=== PATIENT | female | born 1945 | race Caucasian/White ===

== ENCOUNTER → 2016-06-17 | Outpatient (CLI) | payer MEDICARE, OTHER ==
[2016-06-17 13:31] LABS: CALCIUM LEVEL 9.3 MG/DL (8.8-10.2); CREATININE FOR GFR 1.03 MG/DL (0.55-1.02); GLOMERULAR FILTRATION RATE 56.4 (>39); POTASSIUM SERUM 4.2 MEQ/L (3.5-5.1)
--- NOTE | 2016-06-17 23:14 | ECGEPIP ---
Stationary ECG Study [facility] Test Date: 2016-06-17 Pat Name: ODALYS JOSE Department: Room: - Gender: F Event Coordinator: ALEJANDRO : 1945 Requested By: Jeffrey Zheng @ [facility] Order Number: [id number] Reading MD: Mary Noriega Measurements Intervals [place] Rate: 56 P: 7 NV: 136 QRS: 13 QRSD: 138 T: 19 QT: 392 QTc: 378 Interpretive Statements SINUS BRADYCARDIA RIGHT BUNDLE BRANCH BLOCK NO PRIOR Electronically Signed On 06-17-2016 23:13:45 EST by Mary Noriega
== END ==
LOC: M LAB 12:34
PROVIDERS: ATTEND Orthopaedic Surgery
DX: Z51.81 Encounter for therapeutic drug level monitoring (principal); Z79.01 Long term (current) use of anticoagulants; I10 Essential (primary) hypertension

== ENCOUNTER → 2016-07-08 | Outpatient (CLI) | payer MEDICARE, OTHER ==
[2016-07-08 12:23] LABS: ALBUMIN/GLOBULIN RATIO 1.21 (1.00-1.93); ALKALINE PHOSPHATASE 84 U/L (45-117); ALT/SGPT 18 U/L (12-78); ANION GAP 6 MEQ/L (8-16); AST/SGOT 18 U/L (15-37); BILIRUBIN,TOTAL 0.5 MG/DL (0.2-1.0); BLOOD UREA NITROGEN 20 MG/DL (7-18); CALCIUM LEVEL 9.3 MG/DL (8.8-10.2); CARBON DIOXIDE LEVEL 31 MEQ/L (21-32); CHLORIDE LEVEL 103 MEQ/L (98-107); CHOLESTEROL LEVEL 248 MG/DL (<200); CREATININE FOR GFR 0.97 MG/DL (0.55-1.02); GLOMERULAR FILTRATION RATE > 60.0 (>39); GLUCOSE, FASTING 94 MG/DL (83-110); MAGNESIUM LEVEL 2.2 MG/DL (1.8-2.4); POTASSIUM SERUM 4.2 MEQ/L (3.5-5.1); SODIUM LEVEL 140 MEQ/L (136-145); TOTAL PROTEIN 7.3 GM/DL (6.4-8.2); TRIGLYCERIDES LEVEL 206 MG/DL (<150)
== END ==
LOC: M WUC 10:06
PROVIDERS: ATTEND Internal Medicine
DX: I10 Essential (primary) hypertension (principal); E78.00 Pure hypercholesterolemia, unspecified

== ENCOUNTER → 2016-10-07 | Outpatient (REF) | payer MEDICARE, OTHER | LOC: M SFHCPLAZ 15:41 | PROVIDERS: ATTEND Nurse Practitioner Adult Health | DX: J02.9 Acute pharyngitis, unspecified (principal) ==

== ENCOUNTER → 2016-11-20 | Outpatient (CLI) | payer MEDICARE, OTHER ==
[2016-11-20 19:38] LABS: CALCIUM LEVEL 8.9 MG/DL (8.8-10.2); CREATININE FOR GFR 0.99 MG/DL (0.55-1.02)
== END ==
LOC: M WUC 16:55
PROVIDERS: ATTEND Orthopaedic Surgery
DX: Z79.899 Other long term (current) drug therapy (principal); I10 Essential (primary) hypertension

== ENCOUNTER → 2017-01-08 | Outpatient (CLI) | payer MEDICARE, OTHER ==
[2017-01-08 13:08] LABS: MEAN CORPUSCULAR HEMOGLOBIN 31.4 pg (27.0-33.0); MEAN CORPUSCULAR HGB CONC 33.9 g/dl (32.0-36.5); MEAN CORPUSCULAR VOLUME 92.4 fl (80.0-96.0); RED CELL DISTRIBUTION WIDTH 12.5 % (11.5-14.5); WHITE BLOOD COUNT 3.7 K/mm3 (4.0-10.0)
[2017-01-08 13:54] LABS: ALBUMIN 3.6 GM/DL (3.2-5.2); ALBUMIN/GLOBULIN RATIO 1.06 (1.00-1.93); BILIRUBIN,TOTAL 0.3 MG/DL (0.2-1.0); CALCIUM LEVEL 9.3 MG/DL (8.8-10.2); CREATININE FOR GFR 0.98 MG/DL (0.55-1.02); GLOMERULAR FILTRATION RATE 59.7 (>39); POTASSIUM SERUM 4.3 MEQ/L (3.5-5.1)
== END ==
LOC: M WUC 09:52
PROVIDERS: ATTEND Internal Medicine
DX: J30.9 Allergic rhinitis, unspecified (principal); I10 Essential (primary) hypertension; E03.9 Hypothyroidism, unspecified

== ENCOUNTER → 2017-03-30 | Outpatient (CLI) | payer MEDICARE, OTHER ==
[~2017-03-30] MED LIST: ACET30TAB PO; ATOR1TAB21 PO; AZEL1SPR3; BISO5TAB2 PO; CYCL10TA PO; ESTR10TA; FLUTISP; GABA-282 PO; GABA800T PO; MELO15TA4 PO; OMEP20CA3 PO; SERT-138 PO; SYNT88TA2 PO; TRAM50TA2 PO; [UNRECOGNIZED DRUG - CODE]
--- NOTE | 2017-03-30 12:11 | REP ---
LUMBAR SPINE, FIVE VIEWS: HISTORY: Back pain. There is no fracture. The lumbar intervertebral discs are decreased in height consistent with disc degeneration. Osteophytes are present on L3 and L4. There is narrowing of the right L3-4 through L5-S1 and left L4-5 and L5-S1 facet joints. There are 4 mm of grade 1 spondylolisthesis of L3 on L4. There is partial sacralization of the L5 vertebral body. IMPRESSION: Degenerative change as described above. Signed by José Miguel Bangura MD 03/30/2017 12:52 P
== END ==
LOC: M WUC 11:06
PROVIDERS: ATTEND Family Medicine
DX: M54.42 Lumbago with sciatica, left side (principal); M25.78 Osteophyte, vertebrae; M43.16 Spondylolisthesis, lumbar region
CPT/HCPCS: 72110; G0463

== ENCOUNTER 2017-04-04 14:19 | Emergency (ER) | payer MEDICARE, OTHER ==
[~2017-04-04] VITALS: Ht 157.5 cm; Wt 70.5 kg
[2017-04-04] MEDS ORDERED: FLUTISP (14:37)
[2017-04-04] MEDS ORDERED: SYNT88TA2 PO (14:37)
[2017-04-04] MEDS ORDERED: ATOR1TAB21 PO (14:37)
[2017-04-04] MEDS ORDERED: GABA800T PO (14:37)
[2017-04-04] MEDS ORDERED: AZEL1SPR3 (14:37)
[2017-04-04] MEDS ORDERED: GABA-282 PO (14:37)
[2017-04-04] MEDS ORDERED: ESTR10TA (14:37)
[2017-04-04] MEDS ORDERED: OMEP20CA3 PO (14:37)
[2017-04-04] MEDS ORDERED: ACET30TAB PO (14:37)
[2017-04-04] MEDS ORDERED: TRAM50TA2 PO (14:37)
[2017-04-04] MEDS ORDERED: MELO15TA4 PO (14:40)
[2017-04-04] MEDS ORDERED: [UNRECOGNIZED DRUG - CODE] (14:40)
[2017-04-04] MEDS ORDERED: BISO5TAB2 PO (14:40)
[2017-04-04] MEDS ORDERED: SERT-138 PO (14:40)
[2017-04-04] MEDS ORDERED: CYCL10TA PO (14:41)
[2017-04-04] MEDS ORDERED: PERCOCET 5MG/325MG TAB PO ONE (15:45)
[2017-04-04 17:05] VITALS: BP 126/85
--- NOTE | 2017-04-05 06:02 | REP ---
CT LUMBAR SPINE: CT lumbar spine is performed in the axial plane. Sagittal and coronal reconstruction images are performed. There is no compression fracture. There is normal lumbar lordosis. There is slight anterolisthesis of L3 on L4 due to posterior facet arthropathy with no spondylolisthesis. There is mild diffuse spurring. There is mild disc space narrowing with vacuum at L3-4. There is moderate disc space narrowing with subchondral sclerosis and vacuum at L5-S1. There is diffuse sclerosis and spurring at the posterior facet joints. I do not see significant disc bulging at L1-2 and there is no evidence of spinal stenosis or foraminal narrowing. At L2-3, there is very mild diffuse disc bulging without spinal stenosis or neural foraminal narrowing. At L3-4, there is moderate diffuse disc bulging. There is moderately severe hypertrophic change of the ligamentum flavum posteriorly. These factors in concert cause moderately severe spinal stenosis and mild bilateral foraminal narrowing. At L4-5, there is moderate diffuse disc bulging. There is moderate hypertrophy of the ligamentum flavum. There is moderate spinal stenosis. There appears to be a large far left lateral disc herniation at this level as well. This likely impinges upon the exiting nerve root on the left at the L4-5 foramen. At L5-S1, there is not significant disc bulging or herniation. There is no spinal stenosis or foraminal narrowing. IMPRESSION: Diffuse degenerative changes with no fracture or dislocation. At L3-4, there is moderate diffuse disc bulging and significant hypertrophy of the ligamentum flavum causing moderately severe spinal stenosis and mild bilateral foraminal narrowing. At L4-5, there is moderate diffuse disc bulging and hypertrophy of the ligamentum flavum with a moderate spinal stenosis. There appears to be a far left lateral large disc herniation which appears to impinge upon the exiting nerve root of the L4-5 foramen. This could be confirmed with MRI. Signed by Jacoby Banuelos MD 04/05/2017 09:02 A
== END 2017-04-04 17:08 | disposition home or self-care (01) ==
LOC: M ED 14:19
DX: M51.16 Intervertebral disc disorders with radiculopathy, lumbar region (principal); M48.061 Spinal stenosis, lumbar region without neurogenic claudication; G89.29 Other chronic pain; I10 Essential (primary) hypertension; J32.9 Chronic sinusitis, unspecified; R01.1 Cardiac murmur, unspecified; E03.9 Hypothyroidism, unspecified; F33.9 Major depressive disorder, recurrent, unspecified; Z79.51 Long term (current) use of inhaled steroids; Z79.82 Long term (current) use of aspirin; Z79.890 Hormone replacement therapy; Z79.899 Other long term (current) drug therapy; Z88.1 Allergy status to other antibiotic agents; Z88.2 Allergy status to sulfonamides; Z88.8 Allergy status to other drugs, medicaments and biological substances; Z91.81 History of falling

== ENCOUNTER 2017-04-05 05:47 | Emergency (ER) | payer MEDICARE, OTHER ==
[~2017-04-05] VITALS: Ht 157.5 cm; Wt 70.5 kg
[2017-04-05 05:48] VITALS: BP 198/100
== END 2017-04-05 08:42 | disposition left against medical advice (07) ==
LOC: M ED 05:47
DX: Z53.21 Procedure and treatment not carried out due to patient leaving prior to being seen by health care provider (principal)

== ENCOUNTER → 2017-05-07 | Outpatient (CLI) | payer MEDICARE, OTHER | LOC: M PAIN 11:00 | DX: G89.29 Other chronic pain (principal); M51.16 Intervertebral disc disorders with radiculopathy, lumbar region; M47.816 Spondylosis without myelopathy or radiculopathy, lumbar region; M54.5 Low back pain; K21.9 Gastro-esophageal reflux disease without esophagitis; I10 Essential (primary) hypertension; M19.90 Unspecified osteoarthritis, unspecified site; F32.9 Major depressive disorder, single episode, unspecified; G47.00 Insomnia, unspecified; E03.9 Hypothyroidism, unspecified; E78.5 Hyperlipidemia, unspecified; Z88.1 Allergy status to other antibiotic agents; Z88.2 Allergy status to sulfonamides; Z88.8 Allergy status to other drugs, medicaments and biological substances; Z79.82 Long term (current) use of aspirin; Z79.899 Other long term (current) drug therapy; Z91.81 History of falling | CPT/HCPCS: G0463 ==

== ENCOUNTER → 2017-07-08 | Outpatient (REF) | payer MEDICARE, OTHER ==
[2017-07-08 12:24] LABS: ALBUMIN 3.8 GM/DL (3.2-5.2); ALBUMIN/GLOBULIN RATIO 1.23 (1.00-1.93); ALKALINE PHOSPHATASE 75 U/L (45-117); ALT/SGPT 21 U/L (12-78); ANION GAP 7 MEQ/L (8-16); AST/SGOT 20 U/L (7-37); BILIRUBIN,TOTAL 0.3 MG/DL (0.2-1.0); BLOOD UREA NITROGEN 13 MG/DL (7-18); CALCIUM LEVEL 9.1 MG/DL (8.8-10.2); CARBON DIOXIDE LEVEL 30 MEQ/L (21-32); CHLORIDE LEVEL 103 MEQ/L (98-107); CHOLESTEROL LEVEL 178 MG/DL (<200); CREATININE FOR GFR 0.93 MG/DL (0.55-1.30); GLOMERULAR FILTRATION RATE > 60.0 (>39); GLUCOSE, FASTING 93 MG/DL (70-100); HDL CHOLESTEROL 62 MG/DL (>40); LDL CHOLESTEROL 90.6 MG/DL (<100); MAGNESIUM LEVEL 2.2 MG/DL (1.8-2.4); NON-HDL-C 116 MG/DL; POTASSIUM SERUM 4.6 MEQ/L (3.5-5.1); SODIUM LEVEL 140 MEQ/L (136-145); TOTAL PROTEIN 6.9 GM/DL (6.4-8.2); TRIGLYCERIDES LEVEL 127 MG/DL (<150)
== END ==
LOC: M SFHCPLAZ 08:39
DX: I10 Essential (primary) hypertension (principal); E78.00 Pure hypercholesterolemia, unspecified
CPT/HCPCS: 83735

== ENCOUNTER → 2017-07-09 | Outpatient (CLI) | payer MEDICARE, OTHER | LOC: M PAIN 13:45 | DX: G89.29 Other chronic pain (principal); M54.5 Low back pain; M47.816 Spondylosis without myelopathy or radiculopathy, lumbar region; K21.9 Gastro-esophageal reflux disease without esophagitis; I10 Essential (primary) hypertension; E78.5 Hyperlipidemia, unspecified; F32.9 Major depressive disorder, single episode, unspecified; G47.00 Insomnia, unspecified; E03.9 Hypothyroidism, unspecified; M19.90 Unspecified osteoarthritis, unspecified site; Z79.82 Long term (current) use of aspirin; Z79.899 Other long term (current) drug therapy; Z88.6 Allergy status to analgesic agent; Z88.2 Allergy status to sulfonamides; Z88.8 Allergy status to other drugs, medicaments and biological substances | CPT/HCPCS: G0463 ==

== ENCOUNTER → 2017-07-30 | Outpatient (CLI) | payer MEDICARE, OTHER ==
[2017-07-30 11:14] LABS: HEMATOCRIT 38.1 % (36.0-47.0); HEMOGLOBIN 12.5 g/dl (12.0-16.0); MEAN CORPUSCULAR HEMOGLOBIN 30.7 pg (27.0-33.0); MEAN CORPUSCULAR HGB CONC 32.8 g/dl (32.0-36.5); MEAN CORPUSCULAR VOLUME 93.6 fl (80.0-96.0); PLATELET COUNT, AUTOMATED 212 10^3/uL (150-450); RED BLOOD COUNT 4.07 10^6/uL (4.00-5.40); RED CELL DISTRIBUTION WIDTH 12.2 % (11.5-14.5); WHITE BLOOD COUNT 4.6 10^3/uL (4.0-10.0)
[2017-07-30 11:22] LABS: APPEARANCE, URINE CLEAR (CLEAR); BACTERIA, URINE AUTO NEGATIVE (NEGATIVE); BILIRUBIN, URINE AUTO NEGATIVE (NEGATIVE); BLOOD, URINE BLOOD 1+ (NEGATIVE); COLOR, URINE YELLOW (YELLOW); GLUCOSE, URINE (UA) AUTO NEGATIVE (NEGATIVE); KETONE, URINE AUTO NEGATIVE (NEGATIVE); LEUKOCYTE ESTERASE, URINE AUTO NEGATIVE (NEGATIVE); MUCUS, URINE SMALL (NEGATIVE); NITRITE, URINE AUTO NEGATIVE (NEGATIVE); PROTEIN, URINE AUTO NEGATIVE (NEGATIVE); RBC, URINE AUTO 7 /HPF (0-3); SPECIFIC GRAVITY URINE AUTO 1.009 (1.002-1.035); SQUAMOUS EPITHELIAL CELL UR AU 0 /HPF (0-6); UROBILINOGEN, URINE AUTO 0.2 mg/dL (0.0-2.0); WBC, URINE AUTO 1 /HPF (0-3)
[2017-07-30 11:26] LABS: INR 0.88
[2017-07-30 11:40] LABS: ALBUMIN 3.8 GM/DL (3.2-5.2); ALBUMIN/GLOBULIN RATIO 1.09 (1.00-1.93); ALKALINE PHOSPHATASE 86 U/L (45-117); ALT/SGPT 19 U/L (12-78); ANION GAP 6 MEQ/L (8-16); AST/SGOT 15 U/L (7-37); BILIRUBIN,TOTAL 0.3 MG/DL (0.2-1.0); BLOOD UREA NITROGEN 14 MG/DL (7-18); CALCIUM LEVEL 8.7 MG/DL (8.8-10.2); CARBON DIOXIDE LEVEL 29 MEQ/L (21-32); CHLORIDE LEVEL 105 MEQ/L (98-107); CREATININE FOR GFR 0.91 MG/DL (0.55-1.30); GLOMERULAR FILTRATION RATE > 60.0 (>39); GLUCOSE, FASTING 81 MG/DL (70-100); POTASSIUM SERUM 3.9 MEQ/L (3.5-5.1); SODIUM LEVEL 140 MEQ/L (136-145); TOTAL PROTEIN 7.3 GM/DL (6.4-8.2)
[2017-07-30 11:52] LABS: ERYTHROCYTE SEDIMENTATION RATE 20 mm/hr (0-30)
== END ==
LOC: M ADMPAT 09:24
DX: Z01.818 Encounter for other preprocedural examination (principal); M17.11 Unilateral primary osteoarthritis, right knee; Z79.899 Other long term (current) drug therapy
CPT/HCPCS: 71046

== ENCOUNTER 2017-08-19 09:24 | Inpatient (IN) | payer MEDICARE, OTHER ==
[2017-08-19] MEDS ORDERED: LR 1,000 ML IV (09:45)
[2017-08-19] MEDS ORDERED: LIDOCAINE 1% MDV 20ML VIAL SQ (09:45)
[2017-08-19] MEDS ORDERED: fentaNYL 100 MCG/2 ML INJECTION (J3010) As Ordered ×2 (11:02→11:46)
[2017-08-19] MEDS ORDERED: MIDAZOLAM INJ 2 MG/2 ML VIAL (J2250) As Ordered ×2 (11:02→11:47)
[2017-08-19] MEDS: fentaNYL 100 MCG/2 ML INJECTION (J3010) IV (12:26)
[2017-08-19] MEDS: MIDAZOLAM INJ 2 MG/2 ML VIAL (J2250) IV (12:26)
[2017-08-19] MEDS ORDERED: ePHEDrine SULFATE 25 MG/5 ML(5MG/ML) SYRINGE As Ordered (12:56)
[2017-08-19] MEDS ORDERED: PROPOFOL 200 MG/20 ML VIAL As Ordered ×2 (12:59)
[2017-08-19] MEDS ORDERED: PHENYLephrine HCL 500 MCG/5 ML (100MCG/ML) SYRINGE (J2370) As Ordered (12:59)
[2017-08-19] MEDS: EPINEPHrine INJ 1 MG/ML 1ML AMP As Ordered (13:24)
[2017-08-19] MEDS: BUPIVACAINE LIPOSOME/PF 1.3% 20 ML VIAL (13.3MG/ML)(EXPAREL) As Ordered (13:25)
[2017-08-19] MEDS: ceFAZolin 1GM INJ (J0690 PER 500MG) As Ordered (13:25)
[2017-08-19] MEDS: TRANEXAMIC ACID 100 MG/ML 10ML VIAL As Ordered (13:26)
[2017-08-19] MEDS ORDERED: ONDANSETRON 4MG/2ML VIAL (J2405) As Ordered (14:08)
[2017-08-19] MEDS ORDERED: dexameTHASONE 4 MG/ML 1ML VIAL (J1100) As Ordered (14:08)
[2017-08-19] MEDS ORDERED: MORPHINE 1MG/ML IN 0.9% NACL 100ML IV BAG As Ordered (14:20)
[2017-08-19] MEDS ORDERED: FLEET ENEMA PR (14:45)
[2017-08-19] MEDS ORDERED: diphenhydrAMINE INJ 50MG/ML VIAL (J1200) IV (14:45)
[2017-08-19] MEDS ORDERED: NALOXONE INJ 0.4 MG/1 ML VIAL (J2310) IV (14:45)
[2017-08-19] MEDS ORDERED: NALBUPHINE HCL 10 MG/ML AMP (J2300) IV (14:45)
[2017-08-19] MEDS ORDERED: PERCOCET 5MG/325MG TAB PO (14:45)
[2017-08-19] MEDS ORDERED: EPIDURAL/PCA KEYS XX (14:45)
[2017-08-19] MEDS ORDERED: HYDROmorphone HCL 1 MG/ML SYRINGE (J1170) IV (14:45)
[2017-08-19] MEDS ORDERED: fentaNYL 100 MCG/2 ML INJECTION (J3010) IV (14:45)
[2017-08-19] MEDS ORDERED: ACETAMINOPHEN TAB 650MG DOSE (2X325MG) PO (14:45)
[2017-08-19] MEDS ORDERED: MORPHINE 1MG/ML IN 0.9% NACL 100ML IV BAG IV (14:45)
[2017-08-19] MEDS: LR 1,000 ML IV ×2 (14:45→17:20)
[2017-08-19] MEDS ORDERED: ONDANSETRON 4MG/2ML VIAL (J2405) IV ×3 (14:45)
[2017-08-19] MEDS ORDERED: LIDOCAINE 1% MDV 20ML VIAL (15:06)
[2017-08-19] MEDS ORDERED: ROPIvacaine 0.5% 30 ML INJECTION (J2795 PER 1MG) (15:06)
[2017-08-19] MEDS ORDERED: dexameTHASONE 10 MG/1 ML VIAL PRES.FREE (J1100) (15:06)
[2017-08-19 15:19] LABS: HEMATOCRIT 34.6 % (36.0-47.0); HEMOGLOBIN 11.4 g/dl (12.0-15.5); MEAN CORPUSCULAR HGB CONC 32.9 g/dl (32.0-36.5); PLATELET COUNT, AUTOMATED 161 10^3/uL (150-450); RED BLOOD COUNT 3.68 10^6/uL (4.00-5.40); RED CELL DISTRIBUTION WIDTH 12.4 % (11.5-14.5); WHITE BLOOD COUNT 7.3 10^3/uL (4.0-10.0)
[2017-08-19 15:40] LABS: ANION GAP 4 MEQ/L (8-16); BLOOD UREA NITROGEN 14 MG/DL (7-18); CALCIUM LEVEL 8.7 MG/DL (8.8-10.2); CARBON DIOXIDE LEVEL 28 MEQ/L (21-32); CHLORIDE LEVEL 111 MEQ/L (98-107); CREATININE FOR GFR 0.86 MG/DL (0.55-1.30); GLOMERULAR FILTRATION RATE > 60.0 (>39); GLUCOSE, FASTING 111 MG/DL (70-100); POTASSIUM SERUM 4.3 MEQ/L (3.5-5.1); SODIUM LEVEL 143 MEQ/L (136-145)
[2017-08-19] MEDS: WARFARIN SOD 5 MG TAB PO (17:06)
[2017-08-19] MEDS: GABAPENTIN 400 MG CAP PO (20:13)
[2017-08-19] MEDS: ATORVASTATIN 20 MG TAB PO (20:13)
[2017-08-20] MEDS: LR 1,000 ML IV (04:45)
[2017-08-20] MEDS: LEVOTHYROXINE 88MCG TABLET (0.088 MG) PO (05:45)
[2017-08-20 07:00] LABS: INR 1.18; PROTHROMBIN TIME 15.2 SECONDS (12.4-14.5)
[2017-08-20] MEDS: ONDANSETRON 4 MG TAB (S0181) PO (08:02)
[2017-08-20] MEDS: PERCOCET 5MG/325MG TAB PO ×2 (08:03→12:32)
[2017-08-20] MEDS: MIRALAX *UNIT DOSE* 17GM PACKET PO (09:35)
[2017-08-20] MEDS: OMEPRAZOLE 20 MG CAP PO (09:36)
[2017-08-20] MEDS: GABAPENTIN 300 MG CAP PO ×2 (09:36→12:32)
[2017-08-20] MEDS: SERTRALINE HCL 50 MG TAB PO (09:37)
[2017-08-20] MEDS: SENOKOT S TAB PO ×2 (09:38→19:56)
[2017-08-20] MEDS: BISOPROLOL FUMARATE 5 MG TAB PO (09:42)
[2017-08-20] MEDS: FLUTICASONE PROP 0.05% NASAL SPRAY 16 GM (FLONASE) (09:43)
[2017-08-20] MEDS: AZELASTINE 137MCG NASAL SPY 30 ML (ASTELIN) (09:43)
[2017-08-20] MEDS: MOM 30ML SUSPENSION UDC PO (09:43)
[2017-08-20] MEDS ORDERED: NALOXONE INJ 0.4 MG/1 ML VIAL (J2310) As Ordered (13:35)
[2017-08-20] MEDS: NALOXONE INJ 0.4 MG/1 ML VIAL (J2310) IV (13:44)
[2017-08-20] MEDS: ACETAMINOPHEN 500 MG TAB PO ×2 (17:08→23:03)
[2017-08-20] MEDS: WARFARIN SOD 5 MG TAB PO (17:08)
[2017-08-20] MEDS: traMADol 50 MG TAB PO ×2 (17:08→22:02)
[2017-08-20] MEDS: ATORVASTATIN 20 MG TAB PO (19:56)
[2017-08-20] MEDS: GABAPENTIN 400 MG CAP PO (19:56)
[2017-08-21] MEDS: traMADol 50 MG TAB PO ×4 (03:29→10:31)
[2017-08-21] MEDS: ACETAMINOPHEN 500 MG TAB PO (05:20)
[2017-08-21] MEDS: LEVOTHYROXINE 88MCG TABLET (0.088 MG) PO (05:20)
[2017-08-21] MEDS ORDERED: traMADol 50 MG TAB PO (05:45)
[2017-08-21 06:49] LABS: INR 1.81; PROTHROMBIN TIME 21.6 SECONDS (12.4-14.5)
[2017-08-21 07:04] LABS: HEMATOCRIT 27.7 % (36.0-47.0); MEAN CORPUSCULAR HEMOGLOBIN 31.1 pg (27.0-33.0); MEAN CORPUSCULAR HGB CONC 32.9 g/dl (32.0-36.5); MEAN CORPUSCULAR VOLUME 94.5 fl (80.0-96.0); PLATELET COUNT, AUTOMATED 165 10^3/uL (150-450); RED BLOOD COUNT 2.93 10^6/uL (4.00-5.40); RED CELL DISTRIBUTION WIDTH 12.8 % (11.5-14.5); WHITE BLOOD COUNT 8.6 10^3/uL (4.0-10.0)
[2017-08-21 07:12] LABS: HEMOGLOBIN 9.1 g/dl (12.0-15.5)
[2017-08-21] MEDS: BISOPROLOL FUMARATE 5 MG TAB PO (09:00)
[2017-08-21] MEDS: FLUTICASONE PROP 0.05% NASAL SPRAY 16 GM (FLONASE) (09:00)
[2017-08-21] MEDS: OMEPRAZOLE 20 MG CAP PO (09:00)
[2017-08-21] MEDS: MIRALAX *UNIT DOSE* 17GM PACKET PO (09:29)
[2017-08-21] MEDS: MOM 30ML SUSPENSION UDC PO (09:29)
[2017-08-21] MEDS: GABAPENTIN 300 MG CAP PO (09:30)
[2017-08-21] MEDS: SENOKOT S TAB PO (09:30)
[2017-08-21] MEDS: SERTRALINE HCL 50 MG TAB PO (09:30)
[2017-08-21] MEDS: AZELASTINE 137MCG NASAL SPY 30 ML (ASTELIN) (09:31)
== END 2017-08-21 11:55 | disposition home health service (06) | DRG 470 ==
LOC: M OR 09:24 → M MS5PR 15:35
PROC: 0SRC0J9 Replacement of Right Knee Joint with Synthetic Substitute, Cemented, Open Approach (ICD-10-PCS; principal; 2017-08-19 11:20)
DX: M17.11 Unilateral primary osteoarthritis, right knee (principal); K21.9 Gastro-esophageal reflux disease without esophagitis; I10 Essential (primary) hypertension; E78.5 Hyperlipidemia, unspecified; E03.9 Hypothyroidism, unspecified; G62.9 Polyneuropathy, unspecified; J30.9 Allergic rhinitis, unspecified; F32.9 Major depressive disorder, single episode, unspecified; F41.9 Anxiety disorder, unspecified; G47.00 Insomnia, unspecified; Z88.6 Allergy status to analgesic agent; Z88.2 Allergy status to sulfonamides; Z88.1 Allergy status to other antibiotic agents; Z79.82 Long term (current) use of aspirin; Z79.899 Other long term (current) drug therapy

== ENCOUNTER → 2017-08-30 | Outpatient (REF) | payer MEDICARE, OTHER ==
[2017-08-30 14:17] LABS: INR 1.23; PROTHROMBIN TIME 15.7 SECONDS (12.4-14.5)
== END ==
LOC: M SHH 13:00
DX: Z51.81 Encounter for therapeutic drug level monitoring (principal); Z79.01 Long term (current) use of anticoagulants
CPT/HCPCS: 85610

== ENCOUNTER → 2017-09-02 | Outpatient (CLI) | payer MEDICARE, OTHER ==
[2017-09-02 12:02] LABS: INR 1.19; PROTHROMBIN TIME 15.3 SECONDS (12.4-14.5)
== END ==
LOC: M WUC 10:23
DX: Z96.651 Presence of right artificial knee joint (principal); Z79.01 Long term (current) use of anticoagulants
CPT/HCPCS: 85610

== ENCOUNTER → 2017-09-06 | Outpatient (REF) | payer MEDICARE, OTHER ==
[2017-09-06 12:52] LABS: INR 1.74; PROTHROMBIN TIME 20.8 SECONDS (12.4-14.5)
== END ==
LOC: M SHH 12:23
DX: Z79.01 Long term (current) use of anticoagulants (principal)
CPT/HCPCS: 85610

== ENCOUNTER → 2017-09-09 | Outpatient (REF) | payer MEDICARE, OTHER ==
[2017-09-09 12:57] LABS: INR 1.87; PROTHROMBIN TIME 22.1 SECONDS (12.4-14.5)
== END ==
LOC: M SHH 12:29
DX: Z79.01 Long term (current) use of anticoagulants (principal)
CPT/HCPCS: 85610

== ENCOUNTER → 2017-09-13 | Outpatient (CLI) | payer MEDICARE, OTHER ==
[2017-09-13 12:28] LABS: INR 2.04; PROTHROMBIN TIME 23.7 SECONDS (12.4-14.5)
== END ==
LOC: M WUC 09:55
DX: Z96.651 Presence of right artificial knee joint (principal); Z79.01 Long term (current) use of anticoagulants
CPT/HCPCS: 85610

== ENCOUNTER → 2017-09-16 | Outpatient (CLI) | payer MEDICARE, OTHER ==
[2017-09-16 13:41] LABS: INR 1.86
== END ==
LOC: M WUC 09:59
DX: Z96.651 Presence of right artificial knee joint (principal); Z79.01 Long term (current) use of anticoagulants
CPT/HCPCS: 85610

== ENCOUNTER → 2017-09-20 | Outpatient (CLI) | payer MEDICARE, OTHER ==
[2017-09-20 17:30] LABS: HEMATOCRIT 35.9 % (36.0-47.0); HEMOGLOBIN 11.3 g/dl (12.0-15.5); MEAN CORPUSCULAR HEMOGLOBIN 29.8 pg (27.0-33.0); MEAN CORPUSCULAR HGB CONC 31.5 g/dl (32.0-36.5); MEAN CORPUSCULAR VOLUME 94.7 fl (80.0-96.0); PLATELET COUNT, AUTOMATED 249 10^3/uL (150-450); RED BLOOD COUNT 3.79 10^6/uL (4.00-5.40); RED CELL DISTRIBUTION WIDTH 13.5 % (11.5-14.5)
== END ==
LOC: M WUC 13:50
DX: D64.9 Anemia, unspecified (principal)
CPT/HCPCS: 85027

== ENCOUNTER → 2017-10-15 | Outpatient (CLI) | payer MEDICARE, OTHER | LOC: M PAIN 09:30 | DX: M47.816 Spondylosis without myelopathy or radiculopathy, lumbar region (principal); M54.5 Low back pain; K21.9 Gastro-esophageal reflux disease without esophagitis; I10 Essential (primary) hypertension; F32.9 Major depressive disorder, single episode, unspecified; G47.00 Insomnia, unspecified; E03.9 Hypothyroidism, unspecified; M19.90 Unspecified osteoarthritis, unspecified site; E78.5 Hyperlipidemia, unspecified; Z79.82 Long term (current) use of aspirin; Z79.899 Other long term (current) drug therapy; Z88.1 Allergy status to other antibiotic agents; Z88.2 Allergy status to sulfonamides; Z88.8 Allergy status to other drugs, medicaments and biological substances | CPT/HCPCS: G0463 ==

== ENCOUNTER → 2018-07-22 | Outpatient (REF) | payer MEDICARE, OTHER ==
[~2018-07-22] MED LIST changes: +ASPI1TAB PO; +CITRACEL PO; +COUM2.5T17 PO; -GABA-282 PO; +GABA-843 PO; -GABA800T PO; +GABA800T4 PO; +LORA10CA PO; +MELO15TA28 PO; -MELO15TA4 PO; +OSTETAB4 PO; +PERC5TAB12 PO; +SLOWTAB2 PO; +VITA100T96 PO; +YUVA10TA3; -[UNRECOGNIZED DRUG - CODE]
[2018-07-22 11:27] LABS: ALBUMIN 3.9 GM/DL (3.2-5.2); ALT/SGPT 30 U/L (12-78); BILIRUBIN,TOTAL 0.5 MG/DL (0.2-1.0); BLOOD UREA NITROGEN 20 MG/DL (7-18); CALCIUM LEVEL 8.9 MG/DL (8.8-10.2); CARBON DIOXIDE LEVEL 29 MEQ/L (21-32); CHLORIDE LEVEL 105 MEQ/L (98-107); CREATININE FOR GFR 0.97 MG/DL (0.55-1.30); GLOMERULAR FILTRATION RATE > 60.0 (>39); GLUCOSE, FASTING 87 MG/DL (70-100); MAGNESIUM LEVEL 1.9 MG/DL (1.8-2.4); POTASSIUM SERUM 4.3 MEQ/L (3.5-5.1); SODIUM LEVEL 140 MEQ/L (136-145); TOTAL PROTEIN 7.7 GM/DL (6.4-8.2)
== END ==
LOC: M SFHCPLAZ 08:03
PROVIDERS: ATTEND Internal Medicine
DX: I10 Essential (primary) hypertension (principal)

== ENCOUNTER → 2018-08-15 | Outpatient (CLI) | payer MEDICARE, OTHER ==
--- NOTE | 2018-08-17 02:25 | ECWPNPC ---
PATIENT NAME: ODALYS JOSE : 1945 GENDER: FEMALE VISIT DATE: 08/15/2018 DISCHARGE DATE: 08/15/18 1059 VISIT LOCKED DATE TIME: PHYSICIAN: KIERRA MORFIN RESOURCE: KIERRA MORFIN REASON FOR APPOINTMENT 1. LOW BACK PAIN HISTORY OF PRESENT ILLNESS HISTORY OF PRESENT ILLNESS: PAIN THE PATIENT DESCRIBES THE PAINDURING THE LAST MONTH SEVERITY - PAIN SCORE OF1/10 73 YEAR OLD FEMALE HERE FOR ROUTINE F/U.SHE SAYS SHE IS MORE OR LESS PAIN FREE AND JUST HERE TO HAVE A F/U. SHE SAYS SHE HAS ENOUGH MEDICATION. FALL RISK SCREENING: SCREENING :NO FALLS REPORTED IN THE LAST YEAR CURRENT MEDICATIONS TAKING VAGIFEM 10 MCG TABLET 1 TABLET VAGINAL THREE TIMES A WEEK TAKING SLOW-MAG 71.5-119 MG TABLET DELAYED RELEASE 1 TAB(S) ORALLY ONCE A DAY TAKING VITAMIN B6 100 MG TABLET 1 TAB(S) ORALLY DAILY TAKING CITRUCEL 500 MG POWDER 1 TBSP ORALLY DAILY TAKING LORATADINE 10 MG TABLET 1 TABLET ORALLY ONCE A DAY TAKING ASPIRIN 81 MG TABLET DELAYED RELEASE 1 TABLET ORALLY ONCE A DAY TAKING ZOLOFT 50 MG TABLET 1 TABLET ORALLY ONCE A DAY TAKING MELOXICAM 15 MG TABLET 1 TABLET ORALLY ONCE A DAY TAKING BISOPROLOL-HYDROCHLOROTHIAZIDE 5-6.25 MG TABLET 1/2 TABLET ORALLY ONCE A DAY TAKING FLONASE 50 MCG/ACT SUSPENSION 2 SPRAY IN EACH NOSTRIL NASALLY DAILY NEEDED FOR ALLERGY SYMPTOMS TAKING AZELASTINE HCL 0.15 % SOLUTION 2 DROP IN EACH NOSTRIL NASALLY TWICE A DAY TAKING GABAPENTIN 600 MG TABLET 1 TABLET ORALLY BEFORE BEDTIME TAKING SYNTHROID 88 MCG TABLET 1 TABLET ORALLY ONCE A DAY TAKING PEPCID 40 MG TABLET 1 TABLET AT BEDTIME ORALLY ONCE A DAY TAKING VITAMIN D3 2000 UNIT CAPSULE 1 CAPSULE ORALLY ONCE A DAY TAKING LIPITOR 20 MG TABLET 1 TABLET ORALLY ONCE A DAY TAKING CHONDROITIN SULFATE 300 MG CAPSULE DIRECTED ORALLY DAILY, NOTES: 1200 MG/DAY NOT-TAKING GABAPENTIN 300 MG CAPSULE 1 CAPSULE ORALLY TWICE A DAY NEEDED-IN ADDITION TO THE SCHEDULED 600MG DOSE. MEDICATION LIST REVIEWED AND RECONCILED WITH THE PATIENT PAST MEDICAL HISTORY HYPERTENSION HYPOTHYROIDISM ANXIETY HYPERCHOLESTEROLEMIA ALLERGIC RHINITIS HEART PALPITATIONS LOW BACK PAIN ALLERGIES NAPROXEN: ALLERGY SEPTRA: HIVES - ALLERGY ZITHROMAX Z-TACOS: NAUSEA/VOMITING - ALLERGY SULFA (FOR ALLERGY USE ONLY): HIVES - ALLERGY SURGICAL HISTORY X2 1975, 1977 SAM WITH BSO 05/2001 NEUROMA REMOVED FROM RIGHT FOOT 06/2001 COLONOSCOPY 11/2002 COLONOSCOPY AND EGD 02/2013 RIGHT KNEE ARTHROSCOPY 07/01/2016 LEFT KNEE ARTHROSCOPY 11/26/2016 RIGHT KNEE REPLACEMENT-DR. WAYNE 08/19/2017 FAMILY HISTORY FATHER: MOTHER: SIBLINGS: , DIAGNOSED WITH CANCER FATHER HYPERTENSIVE, DIABETIC, HAD COPD- AGE 74. MOTHER HAD RHEUMATIC HEART DISEASE, AT AGE 85. TWO SISTERS--ONE IS HER TWIN--HER TWIN IS ON A STATIN; ANOTHER AGE 59 OF LUNG CANCER. , HEALTHY CHILDREN.\N. SOCIAL HISTORY GENERAL: TOBACCO USE ARE YOU A:NONSMOKER LATEX QUESTIONNAIRE LATEX ALLERGY : HAVE YOU EVER DEVELOPED ANY TYPE OF REACTION AFTER HANDLING LATEX PRODUCTS SUCH RUBBER GLOVES, CONDOMS, DIAPHRAGMS, BALLOONS, SOCKS, OR UNDERWEAR?NO LATEX ALLERGY : HAVE YOU EVER DEVELOPED ANY TYPE OF REACTION DURING OR AFTER DENTAL APPOINTMENT, VAGINAL/RECTAL EXAMINATION, SURGICAL PROCEDURE, OR ANY OTHER EXPOSURE?NO DATE ASKED : 07/26/2018 LATEX RISK : HAVE YOU EVER HAD ANY DIFFICULTY BREATHING OR HIVES AFTER EATING OR HANDLING ANY FRUITS, OR VEGETABLES; SUCH KIWI, BANANAS, STONE FRUITS, OR CHESTNUTSNO LATEX RISK : DO YOU HAVE A PREVIOUS PERSONAL HISTORY OF MORE THAN NINE SURGERIES, SPINA BIFIDA, OR REPEATED CATHERTIZATIONS? YES - PLEASE INDICATE : > 9 SURGERIES LATEX RISK : ARE YOU FREQUENTLY EXPOSED TO LATEX PRODUCTS IN YOUR OCCUPATION?NO ALCOHOL SCREENING DID YOU HAVE A DRINK CONTAINING ALCOHOL IN THE PAST YEAR?YES HOW OFTEN DID YOU HAVE A DRINK CONTAINING ALCOHOL IN THE PAST YEAR?MONTHLY OR LESS (1 POINT) POINTS1 INTERPRETATIONNEGATIVE RECREATIONAL DRUG USE DRUG USE?NO CAFFEINE CAFFEINE USE?YES HOW OFTEN AND HOW MUCH? DAILY 4 CUPS SEXUAL HX HAD SEX IN THE LAST 12 MONTHS (VAGINAL, ORAL, OR ANAL)?YES WITHMEN ONLY HAVE YOU EVER HAD AN STD?NO HIV / HEP-C SCREENING HIV TEST OFFERED TO PATIENT:YES NEGATIVE 12/2015 DATE OFFERED:01/24/2018 TEST ACCEPTED:NO HEP-C TEST OFFERED TO PATIENT:YES NEGATIVE 12/2015 DATE OFFERED:01/24/2018 REASON:PATIENT DECLINED TEST ACCEPTED:NO REASON:PATIENT DECLINED BROCHURE PROVIDED TO PATIENTYES JEWISH JEWISH NO TAOIST BELIEFS THAT WOULD IMPACT HEALTH CARE. 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 PAIN CLINIC PFS, CLERGY, PUBLIC HEALTH REFERRALS PFS REFERRAL NEEDED?NO CLERGY REFERRAL NEEDED?NO PUBLIC HEALTH REFERRAL NEEDED?NO WAS THE PROVIDER NOTIFIED OF ANY PERTINENT INFO?NO HAS THE PATIENT BEEN EDUCATED REGARDING HIS/HER PLAN OF CARE?YES 10/15/17 1000 LAS HAS THE PATIENT BEEN EDUCATED REGARDING PAIN, THE RISK FOR PAIN, THE IMPORTANCE OF EFFECTIVE PAIN MANAGEMENT, AND THE PAIN ASSESSMENT PROCESS?YES 10/15/17 1000 LAS HOUSING: OWNS HOME. ADVANCE DIRECTIVE ADVANCE DIRECTIVE DISCUSSED WITH PATIENT:YES HCP - EDWARDO JOSE REVIEWED WITH PATIENT 08/15/18 1024 JS. HOSPITALIZATION/MAJOR DIAGNOSTIC PROCEDURE NO HOSPITALIZATION HISTORY. REVIEW OF SYSTEMS REVIEWED BY: PROVIDER: ALFONSO Loyd CONSTITUTIONAL: ANY CHANGE IN YOUR MEDICAL CONDITION? NO . CHILLS NO . FEVER NO . INFECTION: DO YOU HAVE NEW INFECTIONS? NO . DO YOU HAVE HISTORY OF MRSA? NO . MUSCULOSKELETAL: ANY NEW PATTERNS OF PAIN OR NUMBNESS? NO . GASTROENTEROLOGY: ANY NEW CHANGE IN BOWEL CONTROL? NO . GENITOURINARY: ANY NEW CHANGE IN BLADDER CONTROL? NO . IS THERE A CHANCE YOU COULD BE ? NO . HEMATOLOGY/LYMPH: DO YOU TAKE ANY BLOOD THINNERS? (FOR EXAMPLE- COUMADIN, PLAVIX, AGGRENOX, PLATEL, PRADAXA, OR XARELTO) NO . WHEN WAS YOUR LAST DOSE? DATE: TIME: . NEUROLOGY: HAVE YOU FALLEN IN THE PAST 12 MONTHS? NO . ANY NEW EXTREMITY NUMBNESS OR WEAKNESS? NO . CARDIOLOGY: DO YOU HAVE A PACEMAKER OR DEFIBRILLATOR? NO . RESPIRATORY: HAVE YOU BEEN SICK IN THE PAST WEEK? NO . FEVER NO . FLU LIKE SYMPTOMS? NO . COUGH YES . INTEGUMENTARY: DO YOU HAVE ANY RASHES OR OPEN SORES? NO . ALLERGIC/IMMUNO: ARE YOU ALLERGIC TO IV DYE? NO . ANY NEW ALLERGIES? NO . PSYCHIATRIC: DO YOU HAVE THOUGHTS OF HURTING YOURSELF OR SOMEONE ELSE? NO . ARE YOU ABUSED, NEGLECTED, OR IN AN UNSAFE ENVIRONMENT? NO . ENDOCRINOLOGY: ARE YOU DIABETIC? NO . OTHER: DO YOU NEED ANY PRESCRIPTIONS? NO . IF YES, PLEASE LIST: ____ . ANY NEW PROBLEMS WITH YOUR MEDICATIONS? NO . WHEN DID YOU LAST EAT? ____ . WHEN DID YOU LAST DRINK? ____ . WHAT DID YOU LAST DRINK? ____ . NAME OF PERSON DRIVING YOU HOME? ____ . DO YOU HAVE ANY OTHER QUESTIONS OR CONCERNS SHINGLES VACCINE MID-JULY . VITAL SIGNS WT 151.0 LBS, HT 62 IN, BMI 27.62 INDEX, BP 138/65 MM HG, HR 63 /MIN, RR 18 /MIN, TEMP 95.7 F, OXYGEN SAT % 100%, SAFE IN ENV? (Y/N) YES, NA INITIALS AW 1009, REVIEWED BY: STEFANO. EXAMINATION GENERAL EXAMINATION: GENERAL APPEARANCE:NO ACUTE DISTRESS, WELL NOURISHED AND HYDRATED. PSYCHAPPROPRIATE MOOD AND AFFECT . LUNGS:CLEAR TO AUSCULTATION BILATERALLY, NO WHEEZES, RHONCHI, RALES. HEART:NO MURMURS, REGULAR RATE AND RHYTHM. BACK:NO CVA TENDERNESS, UNREMARKABLE. ASSESSMENTS LUMBAR DEGENERATIVE DISC DISEASE - M51.36 (PRIMARY), SHE TAKES GABAPENTIN AT BEDTIME AND MELOXICAM FOR HER BACK PAIN AND ARTHRITIS, WITH BENEFIT. 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 THEY WERE ADVISED THAT THIS WILL IMPROVE WEIGHT LOSS AND ALSO DEPRESSION/FIBROMYALGIA SYMPTOMS. ADVISED TO WALK 10 MINUTES EVERY OTHER DAY ON A FLAT SURFACE. EMPHASIZED THE IMPORTANCE OF DOING THIS CONSISTANTLY AND NOT SPORATICALLY TO AVOID INJURY. STRONG ADVISED NOT TO DO MORE THAN 10 MINUTES EVERY OTHER DAY FOR THE FIRST 4 WEEKS. PROCEDURE CODES FA211 ESTABILISHED PATIENT [facility] CHARGE DISPOSITION & COMMUNICATION FOLLOW UP 1 YEAR ELECTRONICALLY SIGNED BY ENRIQUE CHAVARRIA ON 08/16/2018 AT 08:45 AM EDT DISCLAIMER : THIS IS A VISIT SUMMARY EXTRACTED FROM THE [employer] CHART. IT IS NOT A COPY OF THE [employer] PROGRESS NOTE. JO ANN
== END ==
LOC: M PAIN 10:00
PROVIDERS: ATTEND Nurse Practitioner Family
DX: M51.36 Other intervertebral disc degeneration, lumbar region (principal); M51.26 Other intervertebral disc displacement, lumbar region; M51.16 Intervertebral disc disorders with radiculopathy, lumbar region; I10 Essential (primary) hypertension; E03.9 Hypothyroidism, unspecified; Z86.59 Personal history of other mental and behavioral disorders; E78.00 Pure hypercholesterolemia, unspecified; Z96.651 Presence of right artificial knee joint; Z88.1 Allergy status to other antibiotic agents; Z88.2 Allergy status to sulfonamides; Z88.6 Allergy status to analgesic agent; Z79.1 Long term (current) use of non-steroidal anti-inflammatories (NSAID); Z79.82 Long term (current) use of aspirin; Z79.899 Other long term (current) drug therapy

== ENCOUNTER → 2019-01-26 | Outpatient (REF) | payer MEDICARE, OTHER ==
[~2019-01-26] MED LIST changes: +ACET-716 PO; -ACET30TAB PO; -ASPI1TAB PO; +ASPI81TA26 PO; -OMEP20CA3 PO; +OMEP20CA4 PO; +VITA100T77 PO; -VITA100T96 PO
[2019-01-26 10:03] LABS: HEMATOCRIT 37.3 % (36.0-47.0); HEMOGLOBIN 12.2 g/dl (12.0-15.5); MEAN CORPUSCULAR HEMOGLOBIN 30.7 pg (27.0-33.0); MEAN CORPUSCULAR HGB CONC 32.7 g/dl (32.0-36.5); PLATELET COUNT, AUTOMATED 170 10^3/uL (150-450); RED BLOOD COUNT 3.97 10^6/uL (4.00-5.40); WHITE BLOOD COUNT 3.2 10^3/uL (4.0-10.0)
[2019-01-26 10:33] LABS: ALBUMIN 3.7 GM/DL (3.2-5.2); BILIRUBIN,TOTAL 0.4 MG/DL (0.2-1.0); CALCIUM LEVEL 9.3 MG/DL (8.8-10.2); CHOLESTEROL RISK RATIO 2.681 (<5); CREATININE FOR GFR 0.99 MG/DL (0.55-1.30); GLOMERULAR FILTRATION RATE 58.7 (>39); MAGNESIUM LEVEL 2.1 MG/DL (1.8-2.4); POTASSIUM SERUM 4.2 MEQ/L (3.5-5.1); THYROID STIMULATING HORMONE 4.23 uIU/ML (0.358-3.740); TOTAL PROTEIN 6.9 GM/DL (6.4-8.2)
== END ==
LOC: M SFHCPLAZ 08:02
PROVIDERS: ATTEND Internal Medicine
DX: D64.9 Anemia, unspecified (principal); I10 Essential (primary) hypertension; E78.00 Pure hypercholesterolemia, unspecified; E03.9 Hypothyroidism, unspecified

== ENCOUNTER → 2019-07-31 | Outpatient (REF) | payer MEDICARE, OTHER ==
[~2019-07-31] MED LIST changes: +OMEP1CAP73 PO; -OMEP20CA4 PO
[2019-07-31 11:18] LABS: ALBUMIN 3.8 GM/DL (3.2-5.2); ALT/SGPT 20 U/L (12-78); BILIRUBIN,TOTAL 0.4 MG/DL (0.2-1.0); BLOOD UREA NITROGEN 16 MG/DL (7-18); CALCIUM LEVEL 9.6 MG/DL (8.8-10.2); CARBON DIOXIDE LEVEL 28 MEQ/L (21-32); CHLORIDE LEVEL 105 MEQ/L (98-107); CREATININE FOR GFR 0.94 MG/DL (0.55-1.30); GLOMERULAR FILTRATION RATE > 60.0 (>39); GLUCOSE, FASTING 84 MG/DL (70-100); MAGNESIUM LEVEL 2.1 MG/DL (1.8-2.4); POTASSIUM SERUM 4.3 MEQ/L (3.5-5.1); SODIUM LEVEL 138 MEQ/L (136-145); TOTAL PROTEIN 7.3 GM/DL (6.4-8.2)
== END ==
LOC: M SFHCPLAZ 08:32
PROVIDERS: ATTEND Internal Medicine
DX: I10 Essential (primary) hypertension (principal); E03.9 Hypothyroidism, unspecified

== ENCOUNTER → 2020-03-25 | Outpatient (REF) | payer MEDICARE, OTHER ==
[~2020-03-25] MED LIST changes: +CYCL-707 PO; -CYCL10TA PO
[2020-03-25 11:23] LABS: ALT/SGPT 24 U/L (12-78); BILIRUBIN,TOTAL 0.3 MG/DL (0.2-1.0); BLOOD UREA NITROGEN 13 MG/DL (7-18); CALCIUM LEVEL 9.1 MG/DL (8.8-10.2); CARBON DIOXIDE LEVEL 29 MEQ/L (21-32); CHLORIDE LEVEL 107 MEQ/L (98-107); CHOLESTEROL LEVEL 186 MG/DL (<200); CREATININE FOR GFR 0.86 MG/DL (0.55-1.30); GLOMERULAR FILTRATION RATE > 60.0 (>39); GLUCOSE, FASTING 88 MG/DL (70-100); POTASSIUM SERUM 4.5 MEQ/L (3.5-5.1); SODIUM LEVEL 141 MEQ/L (136-145); TRIGLYCERIDES LEVEL 152 MG/DL (<150)
[2020-03-25 11:24] LABS: ALBUMIN 3.8 GM/DL (3.2-5.2); CHOLESTEROL RISK RATIO 3.152 (<5); HDL CHOLESTEROL 59 MG/DL (>40); LDL CHOLESTEROL 97 MG/DL (<100); MAGNESIUM LEVEL 2.1 MG/DL (1.8-2.4); NON-HDL-C 127 MG/DL; TOTAL PROTEIN 6.9 GM/DL (6.4-8.2)
== END ==
LOC: M PLALAB 08:17
PROVIDERS: ATTEND Internal Medicine
DX: I10 Essential (primary) hypertension (principal); E78.00 Pure hypercholesterolemia, unspecified

== ENCOUNTER → 2020-04-19 | Outpatient (CLI) | payer MEDICARE, OTHER ==
--- NOTE | 2020-04-27 00:53 | ECWPNPC ---
PATIENT NAME: ODALYS JOSE : 1945 GENDER: FEMALE VISIT DATE: 04/19/2020 DISCHARGE DATE: 04/19/20 1212 VISIT LOCKED DATE TIME: PHYSICIAN: KIA HARO PHYSICIAN PAGER NO: ACTIVE RESOURCE: KIA HARO REASON FOR APPOINTMENT 1. CHRONIC PAIN HISTORY OF PRESENT ILLNESS DEPRESSION SCREENING: PHQ-9 LITTLE INTEREST OR PLEASURE IN DOING THINGSMORE THAN HALF THE DAYS FEELING DOWN, DEPRESSED, OR HOPELESSMORE THAN HALF THE DAYS TROUBLE FALLING OR STAYING ASLEEP, OR SLEEPING TOO MUCHNOT AT ALL FEELING TIRED OR HAVING LITTLE ENERGYSEVERAL DAYS POOR APPETITE OR OVEREATING SEVERAL DAYS FEELING BAD ABOUT YOURSELF-OR THAT YOU ARE A FAILURE OR HAVE LET YOURSELF OR YOUR FAMILY DOWN SEVERAL DAYS TROUBLE CONCENTRATING ON THINGS, SUCH READING THE NEWSPAPER OR WATCHING TELEVISION NEARLY EVERY DAY MOVING OR SPEAKING SO SLOWLY THAT OTHER PEOPLE COULD HAVE NOTICED. OR THE OPPOSITE- BEING SO FIDGETY OR RESTLESS THAT YOU HAVE BEEN MOVING AROUND A LOT MORE THAN USUALSEVERAL DAYS THOUGHTS THAT YOU WOULD BE BETTER OFF , OR OF HURTING YOURSELF IN SOME WAY?NOT AT ALL TOTAL SCORE:11 INTERPRETATIONMODERATE DEPRESSION PHQ-2 (2015 EDITION) LITTLE INTEREST OR PLEASURE IN DOING THINGS?SEVERAL DAYS FEELING DOWN, DEPRESSED, OR HOPELESS?SEVERAL DAYS TOTAL SCORE2 GENERAL: 75-YEAR-OLD FEMALE BEING REFERRED BY DR. ANDERSON FOR EVALUATION OF CHRONIC LOW BACK PAIN. PREVIOUS PATIENT OF OURS WITH LAST VISIT BEING IN 2017. HAD FLAREUP OF LOW BACK PAIN A FEW MONTHS AGO AND THIS HAS RESOLVED. ATTENDED PHYSICAL THERAPY WITH IMPROVEMENT. REVIEWED CT OF THE LS-SPINE DONE IN MARCH 2017. PATIENT IS ADVISED THAT IF PAIN FLARES UP SHE COULD CONSIDER DOING INTERVENTIONS WITH US BUT AT THIS TIME SHE FEELS SHE IS DOING OKAY. DENIES SUDDEN WEIGHT LOSS OR CHANGES IN HER BOWEL OR BLADDER HABITS. -. FALL RISK SCREENING: SCREENING :NO FALLS REPORTED IN THE LAST YEAR PAIN SCREENING: PATIENT HAS A COMPLAINT OF ACUTE OR CHRONIC PAIN :YES LOCATION OF PAIN:LOW BACK, RIGHT HIP INTENSITY OF PAIN (SCALE OF 1 TO 10):3 WHAT DOES YOUR PAIN FEEL LIKE: TIGHTENING, WARMTH DURATION:INTERMITTENT PAIN IS INCREASED BY:OTHERS UPON AWAKENING PAIN IS DECREASED BY:OTHERS ACTIVITY TREATMENT/MEDICATIONS USED TO MANAGE PAIN:OPIOIDS NAVEEN LEVEL OF RELIEF FROM PAIN TREATMENTS IN THE PAST:50% PAIN HAS INTERFERED WITH THE FOLLOWING:SLEEP NURSING NOTE: -. PAIN CENTER INTAKE QUESTIONS: DO YOU HAVE A HISTORY OF MRSA? :NO DO YOU TAKE A BLOOD THINNERS? :NO DO YOU HAVE ANY BLEEDING DISORDERS? :NO ANY NEW NUMBNESS OR WEAKNESS IN YOUR LEGS OR ARMS? :YES TINGLING BILAT TOES, L>R ANY PACEMAKER,DEFIBRILLATOR, OR DORSAL COLUMN STIMULATOR? :NO DO YOU HAVE ANY RASHES OR OPEN SORES? :NO ARE YOU ALLERGIC TO IV DYE? :NO ARE YOU DIABETIC? :NO ANY NEW PROBLEMS WITH YOUR MEDICATIONS? :NO HAVE YOU RECEIVED A VACCINE IN THE PAST 30 DAYS? :NO DO YOU PLAN TO RECEIVE A VACCINE IN THE NEXT 21 DAYS? :NO DO YOU NEED ANY PRESCRIPTION? :NO DO YOU TAKE ANY IMMUNOSUPPRESSIVE MEDICATIONS? :NO IS THERE A CHANCE YOU COULD BE ? :NO ARE YOU BREAST FEEDING? :NO CURRENT MEDICATIONS TAKING FLONASE 50 MCG/ACT SUSPENSION 2 SPRAY IN EACH NOSTRIL NASALLY DAILY NEEDED FOR ALLERGY SYMPTOMS TAKING SYNTHROID 88 MCG TABLET 1 TABLET ORALLY ONCE A DAY TAKING MELOXICAM 15 MG TABLET 1 TABLET ORALLY ONCE A DAY TAKING SLOW-MAG 71.5-119 MG TABLET DELAYED RELEASE 1 TAB(S) ORALLY ONCE A DAY TAKING VITAMIN B6 100 MG TABLET 1 TAB(S) ORALLY DAILY TAKING CITRUCEL 500 MG POWDER 1 TBSP ORALLY DAILY TAKING LORATADINE 10 MG TABLET 1 TABLET ORALLY ONCE A DAY TAKING VITAMIN D3 2000 UNIT CAPSULE 1 CAPSULE ORALLY ONCE A DAY TAKING CHONDROITIN SULFATE 300 MG CAPSULE DIRECTED ORALLY DAILY, NOTES: 1200 MG/DAY TAKING GABAPENTIN 600 MG TABLET 1 TABLET ORALLY BEFORE BEDTIME TAKING LIPITOR 20 MG TABLET 1 TABLET ORALLY ONCE A DAY TAKING GABAPENTIN 300 MG CAPSULE 1 CAPSULE ORALLY TWICE A DAY NEEDED-IN ADDITION TO THE SCHEDULED 600MG DOSE. TAKING AZELASTINE HCL 0.1 % SOLUTION 2 DROP IN EACH NOSTRIL NASALLY TWICE A DAY TAKING PEPCID 40 MG TABLET 1 TABLET AT BEDTIME ORALLY ONCE A DAY TAKING ZOLOFT 100 MG TABLET 1 TABLET ORALLY ONCE A DAY TAKING AMLODIPINE BESYLATE 2.5 MG TABLET 1 TABLET ORALLY ONCE A DAY NOT-TAKING BISOPROLOL-HYDROCHLOROTHIAZIDE 5-6.25 MG TABLET 1/2 TABLET ORALLY ONCE A DAY NOT-TAKING VAGIFEM 10 MCG TABLET 1 TABLET VAGINAL THREE TIMES A WEEK NOT-TAKING ASPIRIN 81 MG TABLET DELAYED RELEASE 1 TABLET ORALLY ONCE A DAY MEDICATION LIST REVIEWED AND RECONCILED WITH THE PATIENT PAST MEDICAL HISTORY HYPERTENSION HYPOTHYROIDISM ANXIETY HYPERCHOLESTEROLEMIA ALLERGIC RHINITIS HEART PALPITATIONS LOW BACK PAIN ALLERGIES NAPROXEN: ALLERGY SEPTRA: HIVES - ALLERGY ZITHROMAX Z-TACOS: NAUSEA/VOMITING - ALLERGY SULFA (FOR ALLERGY USE ONLY): HIVES - ALLERGY SURGICAL HISTORY X2 1975, 1977 SAM WITH BSO 05/2001 NEUROMA REMOVED FROM RIGHT FOOT 06/2001 COLONOSCOPY 11/2002 COLONOSCOPY AND EGD 02/2013 RIGHT KNEE ARTHROSCOPY 07/01/2016 LEFT KNEE ARTHROSCOPY 11/26/2016 RIGHT KNEE REPLACEMENT-DR. WAYNE 08/19/2017 FAMILY HISTORY FATHER: MOTHER: SIBLINGS: , DIAGNOSED WITH OTHER MALIGNANT NEOPLASM OF UNSPECIFIED SITE FATHER HYPERTENSIVE, DIABETIC, HAD COPD- AGE 74. MOTHER HAD RHEUMATIC HEART DISEASE, AT AGE 85. TWO SISTERS--ONE IS HER TWIN--HER TWIN IS ON A STATIN; ANOTHER AGE 59 OF LUNG CANCER. , HEALTHY CHILDREN.\N. SOCIAL HISTORY GENERAL: TOBACCO USE ARE YOU A:NONSMOKER LATEX QUESTIONNAIRE LATEX ALLERGY : HAVE YOU EVER DEVELOPED ANY TYPE OF REACTION AFTER HANDLING LATEX PRODUCTS SUCH RUBBER GLOVES, CONDOMS, DIAPHRAGMS, BALLOONS, SOCKS, OR UNDERWEAR?NO LATEX ALLERGY : HAVE YOU EVER DEVELOPED ANY TYPE OF REACTION DURING OR AFTER DENTAL APPOINTMENT, VAGINAL/RECTAL EXAMINATION, SURGICAL PROCEDURE, OR ANY OTHER EXPOSURE?NO DATE ASKED : 03/27/2020 LATEX RISK : HAVE YOU EVER HAD ANY DIFFICULTY BREATHING OR HIVES AFTER EATING OR HANDLING ANY FRUITS, OR VEGETABLES; SUCH KIWI, BANANAS, STONE FRUITS, OR CHESTNUTSNO LATEX RISK : DO YOU HAVE A PREVIOUS PERSONAL HISTORY OF MORE THAN NINE SURGERIES, SPINA BIFIDA, OR REPEATED CATHERIZATIONS? NO LATEX RISK : ARE YOU FREQUENTLY EXPOSED TO LATEX PRODUCTS IN YOUR OCCUPATION?NO LUNG CANCER SCREENING SMOKING STATUS:NON SMOKER ALCOHOL SCREENING DID YOU HAVE A DRINK CONTAINING ALCOHOL IN THE PAST YEAR?YES HOW OFTEN DID YOU HAVE A DRINK CONTAINING ALCOHOL IN THE PAST YEAR?MONTHLY OR LESS (1 POINT) POINTS1 INTERPRETATIONNEGATIVE RECREATIONAL DRUG USE DRUG USE?NO CAFFEINE CAFFEINE USE?YES HOW OFTEN AND HOW MUCH? DAILY 4 CUPS SEXUAL HX HAD SEX IN THE LAST 12 MONTHS (VAGINAL, ORAL, OR ANAL)?YES WITHMEN ONLY HAVE YOU EVER HAD AN STD?NO HIV / HEP-C SCREENING HIV TEST OFFERED TO PATIENT:YES NEGATIVE 12/2015 DATE OFFERED:01/24/2018 TEST ACCEPTED:NO HEP-C TEST OFFERED TO PATIENT:YES NEGATIVE 12/2015 DATE OFFERED:01/24/2018 REASON:PATIENT DECLINED TEST ACCEPTED:NO REASON:PATIENT DECLINED BROCHURE PROVIDED TO PATIENTYES JUDAISM JUDAISM NO MORMON BELIEFS THAT WOULD IMPACT HEALTH CARE. 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 PAIN CLINIC PFS, CLERGY, PUBLIC HEALTH REFERRALS PFS REFERRAL NEEDED?NO CLERGY REFERRAL NEEDED?NO PUBLIC HEALTH REFERRAL NEEDED?NO WAS THE PROVIDER NOTIFIED OF ANY PERTINENT INFO?NO HAS THE PATIENT BEEN EDUCATED REGARDING HIS/HER PLAN OF CARE?YES 10/15/17 1000 LAS HAS THE PATIENT BEEN EDUCATED REGARDING PAIN, THE RISK FOR PAIN, THE IMPORTANCE OF EFFECTIVE PAIN MANAGEMENT, AND THE PAIN ASSESSMENT PROCESS?YES 10/15/17 1000 LAS HOUSING: OWNS HOME. ADVANCE DIRECTIVE ADVANCE DIRECTIVE DISCUSSED WITH PATIENT:YES HCP - EDWARDO JOSE REVIEWED WITH PATIENT 08/15/18 1024 JS. HOSPITALIZATION/MAJOR DIAGNOSTIC PROCEDURE GI BLEED 2002 SURGERIES REVIEW OF SYSTEMS CONSTITUTIONAL: ANY RECENT FEVER NO . CHILLS NO . WEIGHT CHANGE OF UNKNOWN REASONS NO . GASTROENTEROLOGY: NEW UNEXPLAINABLE CHANGES IN BOWEL CONTROL NO . CONSTIPATION NO . GENITOURINARY: ANY NEW CHANGE IN BLADDER CONTROL? NO . NEUROLOGY: NEW ONSET DIZZINESS OR NEUROLOGICAL CHANGES NOT MENTIONED NO . NEW NUMBNESS OR PAIN PATTERNS NOT MENTIONED AND PERTINENT TO TODAY'S VISIT NO . CARDIOLOGY: NEW CHEST PRESSURE NO . NEW CHEST PAIN NO . RESPIRATORY: UNEXPLAINABLE COUGH NO . NEW SHORTNESS OF BREATH NO . VITAL SIGNS WT 148.2 LBS, HT 62 IN, BMI 27.10 INDEX, BP 154/70 MM HG, HR 84 /MIN, RR 18 /MIN, TEMP 97.0 F, OXYGEN SAT % 99%, SAFE IN ENV? (Y/N) Y, NA INITIALS SC 11:23, REVIEWED BY: EM. EXAMINATION GENERAL EXAMINATION: GENERALNO ACUTE DISTRESS, WELL NOURISHED AND HYDRATED. PSYCHAPPROPRIATE MOOD AND AFFECT . NECK:NO LYMPHADENOPATHY, SUPPLE, . LUNGS:CLEAR TO AUSCULTATION BILATERALLY, NO WHEEZES, RHONCHI, RALES. HEART:NO MURMURS, REGULAR RATE AND RHYTHM. MUSCULOSKELETAL:NORMAL RANGE OF MOTION., MUSCLE STRENGTH TESTING 5/5 BILATERAL UPPER/LOWER EXTREMITIES. LUMBAR: NONTENDER WITH PALPATION. 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 PROCEDURE CODES FA211 ESTABILISHED PATIENT [facility] CHARGE DISPOSITION & COMMUNICATION FOLLOW UP PT WILL CALL FOR F/U IF NECESSARY (REASON: LUMBAR SPINAL STENOSIS ) ELECTRONICALLY SIGNED BY ENRIQUE LUGO ON 04/26/2020 AT 10:23 AM EST DISCLAIMER : THIS IS A VISIT SUMMARY EXTRACTED FROM THE [employer] CHART. IT IS NOT A COPY OF THE [employer] PROGRESS NOTE. JO ANN
== END ==
LOC: M PAIN 11:15
PROVIDERS: ATTEND Nurse Practitioner Family
DX: M48.061 Spinal stenosis, lumbar region without neurogenic claudication (principal); G89.29 Other chronic pain; E03.9 Hypothyroidism, unspecified; Z86.59 Personal history of other mental and behavioral disorders; Z96.651 Presence of right artificial knee joint; Z88.1 Allergy status to other antibiotic agents; Z88.2 Allergy status to sulfonamides; Z88.6 Allergy status to analgesic agent; Z79.899 Other long term (current) drug therapy

== ENCOUNTER → 2020-06-11 | Outpatient (CLI) | payer MEDICARE, OTHER ==
[~2020-06-11] MED LIST changes: +GABA-282 PO; -GABA-843 PO
--- NOTE | 2020-06-13 00:37 | ECWPNPC ---
PATIENT NAME: ODALYS JOSE : 1945 GENDER: FEMALE VISIT DATE: 06/11/2020 DISCHARGE DATE: 06/11/2057 VISIT LOCKED DATE TIME: PHYSICIAN: KIA HARO PHYSICIAN PAGER NO: ACTIVE RESOURCE: KIA HARO REASON FOR APPOINTMENT 1. LUMBAR SPINAL STENOSIS HISTORY OF PRESENT ILLNESS GENERAL: BEING SEEN TODAY FOR FOLLOW-UP OF PERSISTENT LOW BACK PAIN. WAS SEEN A FEW MONTHS AGO AND FELT HER BACK PAIN WAS GETTING BETTER WITH PHYSICAL THERAPY. TODAY SHE SAYS THAT SHE WILL BE SEEING A NEUROSURGEON IN [place] WHO HAS ORDERED AN MRI OF LUMBAR SPINE. STATES THAT SHE'S DEALING WITH THE PAIN. PAIN IS INTERMITTENT. PAIN IS ACROSS LOWER BACK RIGHT GREATER THAN LEFT. REPORTS NUMBNESS AND TINGLING IN HER LOWER EXTREMITIES AND SOMETIMES HER FEET. PAIN IS AGGRAVATED BY PROLONGED STANDING OR SITTING OR DOING ACTIVITIES. SHE WOULD LIKE TO DISCUSS INTERVENTIONAL TREATMENT OPTIONS IF NEUROSURGEON SUGGESTS THAT IN [place]. -. FALL RISK SCREENING: SCREENING :NO FALLS REPORTED IN THE LAST YEAR PAIN SCREENING: PATIENT HAS A COMPLAINT OF ACUTE OR CHRONIC PAIN :YES LOCATION OF PAIN:LOW BACK, LEFT HIP, RIGHT HIP INTENSITY OF PAIN (SCALE OF 1 TO 10):2 WHAT DOES YOUR PAIN FEEL LIKE:ACHING DURATION:CONTINOUS, CONSTANT, ALL DAY PAIN IS INCREASED BY:ACTIVITIES PAIN IS DECREASED BY:SITTING NURSING NOTE: -. PAIN CENTER INTAKE QUESTIONS: DO YOU HAVE A HISTORY OF MRSA? :NO DO YOU TAKE A BLOOD THINNERS? :NO DO YOU HAVE ANY BLEEDING DISORDERS? :NO ANY NEW NUMBNESS OR WEAKNESS IN YOUR LEGS OR ARMS? :NO ANY PACEMAKER,DEFIBRILLATOR, OR DORSAL COLUMN STIMULATOR? :NO DO YOU HAVE ANY RASHES OR OPEN SORES? :NO ARE YOU ALLERGIC TO IV DYE? :NO ARE YOU DIABETIC? :NO ANY NEW PROBLEMS WITH YOUR MEDICATIONS? :NO HAVE YOU RECEIVED A VACCINE IN THE PAST 30 DAYS? :NO DO YOU PLAN TO RECEIVE A VACCINE IN THE NEXT 21 DAYS? :NO DO YOU NEED ANY PRESCRIPTION? :NO DO YOU TAKE ANY IMMUNOSUPPRESSIVE MEDICATIONS? :NO IS THERE A CHANCE YOU COULD BE ? :NO ARE YOU BREAST FEEDING? :NO CURRENT MEDICATIONS TAKING FLONASE 50 MCG/ACT SUSPENSION 2 SPRAY IN EACH NOSTRIL NASALLY DAILY NEEDED FOR ALLERGY SYMPTOMS TAKING SYNTHROID 88 MCG TABLET 1 TABLET ORALLY ONCE A DAY TAKING MELOXICAM 15 MG TABLET 1 TABLET ORALLY ONCE A DAY TAKING SLOW-MAG 71.5-119 MG TABLET DELAYED RELEASE 1 TAB(S) ORALLY ONCE A DAY TAKING VITAMIN B6 100 MG TABLET 1 TAB(S) ORALLY DAILY TAKING CITRUCEL 500 MG POWDER 1 TBSP ORALLY DAILY TAKING LORATADINE 10 MG TABLET 1 TABLET ORALLY ONCE A DAY TAKING VITAMIN D3 2000 UNIT CAPSULE 1 CAPSULE ORALLY ONCE A DAY TAKING CHONDROITIN SULFATE 300 MG CAPSULE DIRECTED ORALLY DAILY TAKING GABAPENTIN 600 MG TABLET 1 TABLET ORALLY BEFORE BEDTIME TAKING LIPITOR 20 MG TABLET 1 TABLET ORALLY ONCE A DAY TAKING GABAPENTIN 300 MG CAPSULE 1 CAPSULE ORALLY TWICE A DAY NEEDED-IN ADDITION TO THE SCHEDULED 600MG DOSE. TAKING AZELASTINE HCL 0.1 % SOLUTION 2 DROP IN EACH NOSTRIL NASALLY TWICE A DAY TAKING PEPCID 40 MG TABLET 1 TABLET AT BEDTIME ORALLY ONCE A DAY TAKING ZOLOFT 100 MG TABLET 1 TABLET ORALLY ONCE A DAY TAKING AMLODIPINE BESYLATE 2.5 MG TABLET 1 TABLET ORALLY ONCE A DAY TAKING GABAPENTIN 100 MG TABLET 1 CAPSULE ORALLY EVERY FOUR HOURS NEEDED FOR PAIN TAKING TYLENOL 1 TAB ORAL NOT-TAKING BISOPROLOL-HYDROCHLOROTHIAZIDE 5-6.25 MG TABLET 1/2 TABLET ORALLY ONCE A DAY NOT-TAKING VAGIFEM 10 MCG TABLET 1 TABLET VAGINAL THREE TIMES A WEEK NOT-TAKING ASPIRIN 81 MG TABLET DELAYED RELEASE 1 TABLET ORALLY ONCE A DAY MEDICATION LIST REVIEWED AND RECONCILED WITH THE PATIENT ALLERGIES NO[ALLERGIES VERIFIED] SURGICAL HISTORY X2 1975, [address] [facility] WITH BSO 05/2001 NEUROMA REMOVED FROM RIGHT FOOT 06/2001 COLONOSCOPY 11/2002 COLONOSCOPY AND EGD 02/2013 RIGHT KNEE ARTHROSCOPY 07/01/2016 LEFT KNEE ARTHROSCOPY 11/26/2016 RIGHT KNEE REPLACEMENT-DR. WAYNE 08/19/2017 SOCIAL HISTORY GENERAL: TOBACCO USE ARE YOU A:NONSMOKER LATEX QUESTIONNAIRE LATEX ALLERGY : HAVE YOU EVER DEVELOPED ANY TYPE OF REACTION AFTER HANDLING LATEX PRODUCTS SUCH RUBBER GLOVES, CONDOMS, DIAPHRAGMS, BALLOONS, SOCKS, OR UNDERWEAR?NO LATEX ALLERGY : HAVE YOU EVER DEVELOPED ANY TYPE OF REACTION DURING OR AFTER DENTAL APPOINTMENT, VAGINAL/RECTAL EXAMINATION, SURGICAL PROCEDURE, OR ANY OTHER EXPOSURE?NO LATEX RISK : HAVE YOU EVER HAD ANY DIFFICULTY BREATHING OR HIVES AFTER EATING OR HANDLING ANY FRUITS, OR VEGETABLES; SUCH KIWI, BANANAS, STONE FRUITS, OR CHESTNUTSNO LATEX RISK : DO YOU HAVE A PREVIOUS PERSONAL HISTORY OF MORE THAN NINE SURGERIES, SPINA BIFIDA, OR REPEATED CATHERIZATIONS? NO LATEX RISK : ARE YOU FREQUENTLY EXPOSED TO LATEX PRODUCTS IN YOUR OCCUPATION?NO DATE ASKED : 06/11/2020 ALCOHOL USE: YES ONCE A MONTH. LUNG CANCER SCREENING SMOKING STATUS:NON SMOKER ALCOHOL SCREENING DID YOU HAVE A DRINK CONTAINING ALCOHOL IN THE PAST YEAR?YES HOW OFTEN DID YOU HAVE A DRINK CONTAINING ALCOHOL IN THE PAST YEAR?MONTHLY OR LESS (1 POINT) POINTS1 INTERPRETATIONNEGATIVE RECREATIONAL DRUG USE DRUG USE?NO CAFFEINE CAFFEINE USE?YES HOW OFTEN AND HOW MUCH? DAILY 4 CUPS SEXUAL HX HAD SEX IN THE LAST 12 MONTHS (VAGINAL, ORAL, OR ANAL)?YES WITHMEN ONLY HAVE YOU EVER HAD AN STD?NO HIV / HEP-C SCREENING HIV TEST OFFERED TO PATIENT:YES NEGATIVE 12/2015 DATE OFFERED:01/24/2018 TEST ACCEPTED:NO HEP-C TEST OFFERED TO PATIENT:YES NEGATIVE 12/2015 DATE OFFERED:01/24/2018 REASON:PATIENT DECLINED TEST ACCEPTED:NO REASON:PATIENT DECLINED BROCHURE PROVIDED TO PATIENTYES YAZIDISM YAZIDISM NO ORTHODOX BELIEFS THAT WOULD IMPACT HEALTH CARE. LANGUAGE LANGUAGES SPOKEN:TONGAN EDUCATION LEVEL OF EDUCATION:COLLEGE LEARNING BARRIERS / SPECIAL NEEDS CHANGE FROM LAST VISIT?YES BARRIERS TO LEARNING?NO HEARING IMPAIRED?NO VISION IMPAIRED?YES :CORRECTIVE LENSES COGNITIVELY IMPAIRED?NO READINESS TO LEARN?YES LEARNING PREFERENCES?NO LEARNING CAPABILITIES PRESENT?YES EMOTIONAL BARRIERS?NO SPECIAL DEVICES?YES :CANE NEEDED AWNING SPREADER NEEDED?NO DOMESTIC VIOLENCE STATUS: DO YOU FEEL SAFE IN YOUR ENVIRONMENT?YES OCCUPATION: RETIRED RN. MARITAL STATUS: WITH CHILDREN. - PFS REFERRAL NEEDED?NO CLERGY REFERRAL NEEDED?NO PUBLIC HEALTH REFERRAL NEEDED?NO WAS THE PROVIDER NOTIFIED OF ANY PERTINENT INFO?NO HAS THE PATIENT BEEN EDUCATED REGARDING HIS/HER PLAN OF CARE?YES 10/15/17 1000 LAS HAS THE PATIENT BEEN EDUCATED REGARDING PAIN, THE RISK FOR PAIN, THE IMPORTANCE OF EFFECTIVE PAIN MANAGEMENT, AND THE PAIN ASSESSMENT PROCESS?YES 10/15/17 1000 LAS HOUSING: OWNS HOME. ADVANCE DIRECTIVE ADVANCE DIRECTIVE DISCUSSED WITH PATIENT:YES HCP - EDWARDO JOSE REVIEWED WITH PATIENT 08/15/18 1024 JS. HOSPITALIZATION/MAJOR DIAGNOSTIC PROCEDURE GI BLEED 2002 SURGERIES REVIEW OF SYSTEMS CONSTITUTIONAL: ANY RECENT FEVER NO . CHILLS NO . WEIGHT CHANGE OF UNKNOWN REASONS NO . GASTROENTEROLOGY: NEW UNEXPLAINABLE CHANGES IN BOWEL CONTROL NO . CONSTIPATION NO . GENITOURINARY: ANY NEW CHANGE IN BLADDER CONTROL? NO . NEUROLOGY: NEW ONSET DIZZINESS OR NEUROLOGICAL CHANGES NOT MENTIONED NO . NEW NUMBNESS OR PAIN PATTERNS NOT MENTIONED AND PERTINENT TO TODAY'S VISIT NO . CARDIOLOGY: NEW CHEST PRESSURE NO . NEW CHEST PAIN NO . RESPIRATORY: UNEXPLAINABLE COUGH NO . NEW SHORTNESS OF BREATH NO . VITAL SIGNS WT 150 LBS, HT 62 IN, BMI 27.43 INDEX, BP 156/73 MM HG, HR 73 /MIN, RR 18 /MIN, TEMP 95.8 F, OXYGEN SAT % 100, SAFE IN ENV? (Y/N) YEST.KATHY BURNS NOTIFTY PROVIDER BP. EXAMINATION GENERAL EXAMINATION: GENERALNO ACUTE DISTRESS, WELL NOURISHED AND HYDRATED. PSYCHAPPROPRIATE MOOD AND AFFECT . NECK:NO LYMPHADENOPATHY, SUPPLE, . LUNGS:CLEAR TO AUSCULTATION BILATERALLY, NO WHEEZES, RHONCHI, RALES. HEART:NO MURMURS, REGULAR RATE AND RHYTHM. MUSCULOSKELETAL:MUSCLE STRENGTH TESTING 5/5 UPPER AND LOWER EXTREMITIES . LUMBAR: PALPATION: NEGATIVE FOR PAIN OVER L/S SPINE. NEGATIVE FOR PAIN OVER L/S PARSPINALS. NEUROLOGIC EXAM:NORMAL SENSATION TO LIGHT TOUCH LOWER EXTREMITIES . 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 SHE IS ALSO SCHEDULED TO SEE THIS IN A CLINIC VISIT TO REVIEW MRI AND DISCUSS TREATMENT OPTIONS. I'VE AGREED TO DO A TELEPHONE VISIT IN 1 MONTH TO REVIEW MRI AND DISCUSS TREATMENT OPTIONS. PROCEDURE CODES FA211 ESTABILISHED PATIENT [facility] CHARGE DISPOSITION & COMMUNICATION FOLLOW UP HAVE PATIENT SIGN RECORDS RELEASE FOR MRI/OFFICE NOTES DR. ANALIA NAZARIO [place] SCHEDULE FOR WEEK TELEPHONE FOLLOW-UP WITH [facility], 4 WEEKS (REASON: TELEPHONE VISIT TO REVIEW MRI AND DISCUSS TREATMENT OPTIONS) ELECTRONICALLY SIGNED BY ENRIQUE LUGO ON 06/12/2020 AT 09:39 AM EST DISCLAIMER : THIS IS A VISIT SUMMARY EXTRACTED FROM THE [facility] [employer] CHART. IT IS NOT A COPY OF THE [employer] PROGRESS NOTE. JO ANN
== END ==
LOC: M PAIN 09:15
PROVIDERS: ATTEND Nurse Practitioner Family
DX: M48.061 Spinal stenosis, lumbar region without neurogenic claudication (principal); Z79.1 Long term (current) use of non-steroidal anti-inflammatories (NSAID); Z79.899 Other long term (current) drug therapy

== ENCOUNTER → 2020-07-08 | Outpatient (REF) | payer MEDICARE, OTHER ==
[2020-07-08 14:17] LABS: BASO % 0.7 % (0.0-1.0); EOS # 0.1 10^3/uL (0.0-0.5); EOS % 1.7 % (0.0-3.0); HEMATOCRIT 40.6 % (36.0-47.0); HEMOGLOBIN 12.8 g/dl (12.0-15.5); LYMPH # 0.4 10^3/uL (1.5-5.0); LYMPH % 9.4 % (24.0-44.0); MEAN CORPUSCULAR HEMOGLOBIN 30.5 pg (27.0-33.0); MEAN CORPUSCULAR HGB CONC 31.5 g/dl (32.0-36.5); MEAN CORPUSCULAR VOLUME 96.7 fl (80.0-96.0); MONO # 0.3 10^3/uL (0.0-0.8); MONO % 6.8 % (2.0-8.0); NEUTROPHILS # 3.4 10^3/uL (1.5-8.5); NEUTROPHILS % 80.9 % (36.0-66.0); PLATELET COUNT, AUTOMATED 165 10^3/uL (150-450); WHITE BLOOD COUNT 4.2 10^3/uL (4.0-10.0)
[2020-07-08 14:28] LABS: INR 0.95; PROTHROMBIN TIME 12.9 SECONDS (12.5-14.3)
[2020-07-08 15:05] LABS: BLOOD UREA NITROGEN 11 MG/DL (7-18); CALCIUM LEVEL 9.4 MG/DL (8.8-10.2); CARBON DIOXIDE LEVEL 30 MEQ/L (21-32); CHLORIDE LEVEL 105 MEQ/L (98-107); CREATININE FOR GFR 0.88 MG/DL (0.55-1.30); GLOMERULAR FILTRATION RATE > 60.0 (>39); GLUCOSE, FASTING 82 MG/DL (70-100); POTASSIUM SERUM 4.7 MEQ/L (3.5-5.1); SODIUM LEVEL 140 MEQ/L (136-145)
== END ==
LOC: M SFHCPLAZ 09:05
PROVIDERS: ATTEND Internal Medicine
DX: Z01.818 Encounter for other preprocedural examination (principal); I10 Essential (primary) hypertension
CPT/HCPCS: 36415; 80048; 85025; 85610; 85730; 93005; G0463

== ENCOUNTER → 2020-07-20 | Outpatient (CLI) | payer MEDICARE, OTHER | LOC: M LABSMTC 11:03 | PROVIDERS: ATTEND Student in an Organized Health Care Education/Training Program | DX: M54.5 Low back pain (principal) ==

== ENCOUNTER → 2020-09-05 | Outpatient (CLI) | payer MEDICARE, OTHER ==
--- NOTE | 2020-09-05 12:00 | REPPI ---
INDICATION: R06.0 EDEMA OF LEFT FOOT M79.672 LEFT FOOT PAIN COMPARISON: None. TECHNIQUE: AP, lateral, bilateral oblique views left foot. FINDINGS: Age-related osteopenia and generalized age-related changes are appreciated. No evidence for acute or healed injury. No significant overt osteoarthritic or inflammatory arthritic findings. Lateral view demonstrates small calcaneal heel spur. IMPRESSION: Essentially age-appropriate left foot radiographs. <Electronically signed by Patricio Vigil > 09/05/20 [id number]
== END ==
LOC: M PLAIMG 11:19
PROVIDERS: ATTEND Internal Medicine
DX: R60.0 Localized edema (principal); M79.672 Pain in left foot

== ENCOUNTER → 2020-09-24 | Outpatient (REF) | payer MEDICARE, OTHER ==
[2020-09-24 10:44] LABS: BASO % 0.8 % (0.0-1.0); EOS # 0.1 10^3/uL (0.0-0.5); EOS % 3.1 % (0.0-3.0); HEMATOCRIT 39.6 % (36.0-47.0); HEMOGLOBIN 12.4 g/dl (12.0-15.5); LYMPH # 0.9 10^3/uL (1.5-5.0); LYMPH % 25.2 % (24.0-44.0); MEAN CORPUSCULAR HGB CONC 31.3 g/dl (32.0-36.5); MEAN CORPUSCULAR VOLUME 95.9 fl (80.0-96.0); MONO # 0.3 10^3/uL (0.0-0.8); MONO % 9.6 % (2.0-8.0); NEUTROPHILS # 2.1 10^3/uL (1.5-8.5); NEUTROPHILS % 60.7 % (36.0-66.0); PLATELET COUNT, AUTOMATED 199 10^3/uL (150-450); RED BLOOD COUNT 4.13 10^6/uL (4.00-5.40); WHITE BLOOD COUNT 3.5 10^3/uL (4.0-10.0)
[2020-09-24 11:26] LABS: ALBUMIN 3.7 GM/DL (3.2-5.2); ALT/SGPT 24 U/L (12-78); BILIRUBIN,TOTAL 0.3 MG/DL (0.2-1.0); BLOOD UREA NITROGEN 18 MG/DL (7-18); CALCIUM LEVEL 9.5 MG/DL (8.8-10.2); CARBON DIOXIDE LEVEL 31 MEQ/L (21-32); CHLORIDE LEVEL 106 MEQ/L (98-107); CREATININE FOR GFR 0.85 MG/DL (0.55-1.30); GLOMERULAR FILTRATION RATE > 60.0 (>39); GLUCOSE, FASTING 81 MG/DL (70-100); MAGNESIUM LEVEL 2.2 MG/DL (1.8-2.4); SODIUM LEVEL 139 MEQ/L (136-145); TOTAL PROTEIN 6.9 GM/DL (6.4-8.2)
== END ==
LOC: M PLALAB 08:37
PROVIDERS: ATTEND Internal Medicine
DX: J30.9 Allergic rhinitis, unspecified (principal); I10 Essential (primary) hypertension; E03.9 Hypothyroidism, unspecified

== ENCOUNTER → 2021-01-27 | Outpatient (CLI) | payer MEDICARE, OTHER ==
[2021-01-27 15:48] LABS: BASO % 0.7 % (0.0-1.0); EOS # 0.1 10^3/uL (0.0-0.5); EOS % 2.4 % (0.0-3.0); HEMATOCRIT 40.9 % (36.0-47.0); HEMOGLOBIN 13.2 g/dl (12.0-15.5); LYMPH # 0.7 10^3/uL (1.5-5.0); LYMPH % 17.1 % (24.0-44.0); MEAN CORPUSCULAR HEMOGLOBIN 30.3 pg (27.0-33.0); MEAN CORPUSCULAR HGB CONC 32.3 g/dl (32.0-36.5); MONO # 0.3 10^3/uL (0.0-0.8); MONO % 7.8 % (2.0-8.0); NEUTROPHILS % 71.8 % (36.0-66.0); PLATELET COUNT, AUTOMATED 201 10^3/uL (150-450); RED BLOOD COUNT 4.35 10^6/uL (4.00-5.40); WHITE BLOOD COUNT 4.2 10^3/uL (4.0-10.0)
[2021-01-27 16:49] LABS: ERYTHROCYTE SEDIMENTATION RATE 11 mm/hr (0-30)
== END ==
LOC: M PLALAB 13:27
PROVIDERS: ATTEND Orthopaedic Surgery
DX: Z96.651 Presence of right artificial knee joint (principal)

== ENCOUNTER → 2021-02-17 | Outpatient (CLI) | payer MEDICARE, OTHER ==
--- NOTE | 2021-02-17 15:16 | REP ---
INDICATION: PRESENCE OF RT ART KNEE JOINT. Rule out loosening of the right artificial knee. Patient reports right knee replacement August of 2017. COMPARISON: Comparison right knee radiographs are from August 20, 2017. TECHNIQUE: 22.0 mCi of technetium 99 M MDP is injected and standard 3 phase imaging of the knees is acquired. FINDINGS: Anterior and posterior flow images demonstrate slightly hyperemic flow in the left calf soft tissues compared to the right. Flow study is otherwise unremarkable. Blood pool images show no evidence of focal or regional increased blood pool uptake. Delayed scan images demonstrate osteoarthritic uptake in the left knee joint line principally involving the tibiofemoral compartment, lateral more so than medial. This consistent with osteoarthritis. There are photopenic areas corresponding to the arthroplasty components of the right knee. There is mild arthroplasty/bone interface uptake in the proximal tibial plateau, in the patella, and in the distal femoral condyles. No focal area of increased uptake is seen to suggest loosening. IMPRESSION: No evidence of loosening or infection. Osteoarthritic uptake pattern in the left knee particularly lateral compartment. <Electronically signed by Yan Granados > 02/17/21 [id number]
== END ==
LOC: M RAD 09:19
PROVIDERS: ATTEND Orthopaedic Surgery
DX: Z96.651 Presence of right artificial knee joint (principal)
CPT/HCPCS: 78315; A9503

== ENCOUNTER → 2021-04-02 | Outpatient (CLI) | payer MEDICARE, OTHER ==
[2021-04-02 13:56] LABS: ALBUMIN 3.7 GM/DL (3.2-5.2); ALT/SGPT 22 U/L (12-78); BILIRUBIN,TOTAL 0.5 MG/DL (0.2-1.0); BLOOD UREA NITROGEN 13 MG/DL (7-18); CALCIUM LEVEL 9.4 MG/DL (8.8-10.2); CARBON DIOXIDE LEVEL 32 MEQ/L (21-32); CHLORIDE LEVEL 105 MEQ/L (98-107); CHOLESTEROL LEVEL 198 MG/DL (<200); CHOLESTEROL RISK RATIO 2.955 (<5); CREATININE FOR GFR 0.94 MG/DL (0.55-1.30); GLOMERULAR FILTRATION RATE > 60.0 (>39); GLUCOSE, FASTING 84 MG/DL (70-100); HDL CHOLESTEROL 67 MG/DL (>40); LDL CHOLESTEROL 97 MG/DL (<100); MAGNESIUM LEVEL 2.3 MG/DL (1.8-2.4); NON-HDL-C 131 MG/DL; POTASSIUM SERUM 4.7 MEQ/L (3.5-5.1); SODIUM LEVEL 139 MEQ/L (136-145); TRIGLYCERIDES LEVEL 168 MG/DL (<150)
== END ==
LOC: M PLALAB 09:41
PROVIDERS: ATTEND Internal Medicine
DX: I10 Essential (primary) hypertension (principal)

== ENCOUNTER → 2021-09-05 | Outpatient (REF) | payer MEDICARE, OTHER ==
[~2021-09-05] MED LIST changes: +BISO1TAB18 PO; -BISO5TAB2 PO
[2021-09-05 13:43] LABS: APPEARANCE, URINE CLOUDY (CLEAR); BACTERIA, URINE AUTO 1+ (NEGATIVE); BILIRUBIN, URINE AUTO NEGATIVE (NEGATIVE); BLOOD, URINE BLOOD 3+ (NEGATIVE); COLOR, URINE YELLOW (YELLOW); GLUCOSE, URINE (UA) AUTO NEGATIVE (NEGATIVE); KETONE, URINE AUTO NEGATIVE (NEGATIVE); LEUKOCYTE ESTERASE, URINE AUTO 3+ (NEGATIVE); NITRITE, URINE AUTO NEGATIVE (NEGATIVE); PROTEIN, URINE AUTO 1+ mg/dL (NEGATIVE); RBC, URINE AUTO 92 /HPF (0-3); SPECIFIC GRAVITY URINE AUTO 1.008 (1.002-1.035); SQUAMOUS EPITHELIAL CELL UR AU 0 /HPF (0-6); UROBILINOGEN, URINE AUTO 0.2 mg/dL (0.0-2.0); WBC, URINE AUTO TNTC /HPF (0-3)
== END ==
LOC: M SFHCPLAZ 13:12
PROVIDERS: ATTEND Physician Assistant
DX: R39.15 Urgency of urination (principal)

== ENCOUNTER → 2021-09-17 | Outpatient (REF) | payer MEDICARE, OTHER ==
[2021-09-17 15:49] LABS: APPEARANCE, URINE HAZY (CLEAR); BACTERIA, URINE AUTO NEGATIVE (NEGATIVE); BILIRUBIN, URINE AUTO NEGATIVE (NEGATIVE); BLOOD, URINE BLOOD 1+ (NEGATIVE); COLOR, URINE YELLOW (YELLOW); GLUCOSE, URINE (UA) AUTO NEGATIVE (NEGATIVE); KETONE, URINE AUTO NEGATIVE (NEGATIVE); LEUKOCYTE ESTERASE, URINE AUTO NEGATIVE (NEGATIVE); MUCUS, URINE SMALL (NEGATIVE); NITRITE, URINE AUTO NEGATIVE (NEGATIVE); PROTEIN, URINE AUTO NEGATIVE (NEGATIVE); RBC, URINE AUTO 2 /HPF (0-3); SQUAMOUS EPITHELIAL CELL UR AU 0 /HPF (0-6); UROBILINOGEN, URINE AUTO 0.2 mg/dL (0.0-2.0); WBC, URINE AUTO 1 /HPF (0-3)
== END ==
LOC: M SFHCPLAZ 15:12
PROVIDERS: ATTEND Physician Assistant
DX: R31.9 Hematuria, unspecified (principal)

== ENCOUNTER → 2021-10-01 | Outpatient (CLI) | payer MEDICARE, OTHER ==
[2021-10-01 13:57] LABS: APPEARANCE, URINE CLEAR (CLEAR); BACTERIA, URINE AUTO NEGATIVE (NEGATIVE); BILIRUBIN, URINE AUTO NEGATIVE (NEGATIVE); BLOOD, URINE BLOOD NEGATIVE (NEGATIVE); COLOR, URINE YELLOW (YELLOW); GLUCOSE, URINE (UA) AUTO NEGATIVE (NEGATIVE); KETONE, URINE AUTO NEGATIVE (NEGATIVE); LEUKOCYTE ESTERASE, URINE AUTO NEGATIVE (NEGATIVE); MUCUS, URINE SMALL (NEGATIVE); NITRITE, URINE AUTO NEGATIVE (NEGATIVE); PROTEIN, URINE AUTO NEGATIVE (NEGATIVE); RBC, URINE AUTO 2 /HPF (0-3); SPECIFIC GRAVITY URINE AUTO 1.006 (1.002-1.035); SQUAMOUS EPITHELIAL CELL UR AU 0 /HPF (0-6); UROBILINOGEN, URINE AUTO 0.2 mg/dL (0.0-2.0); WBC, URINE AUTO 0 /HPF (0-3)
== END ==
LOC: M PLALAB 10:50
PROVIDERS: ATTEND Physician Assistant
DX: R31.9 Hematuria, unspecified (principal)

== ENCOUNTER → 2021-10-20 | Outpatient (CLI) | payer MEDICARE, OTHER ==
[2021-10-20 14:37] LABS: BASO % 0.8 % (0.0-1.0); EOS # 0.1 10^3/uL (0.0-0.5); EOS % 2.8 % (0.0-3.0); HEMATOCRIT 44.4 % (36.0-47.0); HEMOGLOBIN 14.2 g/dl (12.0-15.5); LYMPH # 0.8 10^3/uL (1.5-5.0); LYMPH % 22.2 % (24.0-44.0); MEAN CORPUSCULAR HEMOGLOBIN 31.3 pg (27.0-33.0); MONO # 0.3 10^3/uL (0.0-0.8); MONO % 7.3 % (2.0-8.0); NEUTROPHILS # 2.4 10^3/uL (1.5-8.5); NEUTROPHILS % 66.6 % (36.0-66.0); PLATELET COUNT, AUTOMATED 230 10^3/uL (150-450); RED BLOOD COUNT 4.53 10^6/uL (4.00-5.40); WHITE BLOOD COUNT 3.6 10^3/uL (4.0-10.0)
[2021-10-20 15:17] LABS: ALBUMIN 3.7 GM/DL (3.2-5.2); ALT/SGPT 21 U/L (12-78); BILIRUBIN,TOTAL 0.4 MG/DL (0.2-1.0); BLOOD UREA NITROGEN 13 MG/DL (7-18); CARBON DIOXIDE LEVEL 30 MEQ/L (21-32); CHLORIDE LEVEL 105 MEQ/L (98-107); CHOLESTEROL LEVEL 162 MG/DL (<200); CHOLESTEROL RISK RATIO 2.219 (<5); CREATININE FOR GFR 0.95 MG/DL (0.55-1.30); GLOMERULAR FILTRATION RATE > 60.0 (>39); GLUCOSE, FASTING 82 MG/DL (70-100); HDL CHOLESTEROL 73 MG/DL (>40); LDL CHOLESTEROL 74 MG/DL (<100); MAGNESIUM LEVEL 2.2 MG/DL (1.8-2.4); NON-HDL-C 89 MG/DL; POTASSIUM SERUM 4.6 MEQ/L (3.5-5.1); SODIUM LEVEL 138 MEQ/L (136-145); TOTAL PROTEIN 6.7 GM/DL (6.4-8.2); TRIGLYCERIDES LEVEL 73 MG/DL (<150)
== END ==
LOC: M PLALAB 09:23
PROVIDERS: ATTEND Internal Medicine
DX: I10 Essential (primary) hypertension (principal)

== ENCOUNTER → 2022-04-17 | Outpatient (CLI) | payer MEDICARE, OTHER ==
[2022-04-17 14:30] LABS: HEMATOCRIT 47.9 % (36.0-47.0); HEMOGLOBIN 15.1 g/dl (12.0-15.5); MEAN CORPUSCULAR HEMOGLOBIN 29.8 pg (27.0-33.0); MEAN CORPUSCULAR HGB CONC 31.5 g/dl (32.0-36.5); MEAN CORPUSCULAR VOLUME 94.5 fl (80.0-96.0); PLATELET COUNT, AUTOMATED 173 10^3/uL (150-450); RED BLOOD COUNT 5.07 10^6/uL (4.00-5.40); WHITE BLOOD COUNT 3.1 10^3/uL (4.0-10.0)
[2022-04-17 14:40] LABS: ALBUMIN 3.6 G/DL (3.2-5.2); ALKALINE PHOSPHATASE 81 U/L (46-116); ALT/SGPT 17 U/L (7.0-40); AST/SGOT 23 U/L (<34); BILIRUBIN,TOTAL 0.3 MG/DL (0.3-1.2); BLOOD UREA NITROGEN 15 MG/DL (9-23); CALCIUM LEVEL 8.6 MG/DL (8.3-10.6); CARBON DIOXIDE LEVEL 30 MMOL/L (20-31); CHLORIDE LEVEL 100 MMOL/L (98-107); CHOLESTEROL LEVEL 148 MG/DL (<200); CHOLESTEROL RISK RATIO 2.21 (<5); CREATININE FOR GFR 0.89 MG/DL (0.55-1.30); GLOMERULAR FILTRATION RATE > 60.0 (>39); GLUCOSE, FASTING 87 MG/DL (74-106); HDL CHOLESTEROL 66.8 MG/DL (>40); LDL CHOLESTEROL 68.2 MG/DL (<100); NON-HDL-C 81 MG/DL; POTASSIUM SERUM 4.5 MMOL/L (3.5-5.1); SODIUM LEVEL 135 MMOL/L (136-145); TOTAL PROTEIN 6.7 G/DL (5.7-8.2); TRIGLYCERIDES LEVEL 65 MG/DL (<150)
[2022-04-17 14:44] LABS: CREATININE, URINE 59.8 MG/DL
[2022-04-17 14:45] LABS: FREE T4 1.09 NG/DL (0.89-1.76); THYROID STIMULATING HORMONE 4.042 uIU/ML (0.55-4.78)
[2022-04-17 14:46] LABS: MALB URINE SIEMENS < 5.0 MG/DL; MAU/CREAT RATIO 8.3 MCG/MG (0.0-30.0)
[2022-04-17 14:48] LABS: TOTAL 25(OH) VITAMIN D 52.8 NG/ML (20.0-100.0)
[2022-04-17 14:50] LABS: VITAMIN B12 LEVEL 225 PG/ML (211-911)
[2022-04-17 15:09] LABS: HEMOGLOBIN A1c 5.1 % (4.0-6.0)
== END ==
LOC: M PLALAB 09:46
PROVIDERS: ATTEND Internal Medicine Hematology
DX: I10 Essential (primary) hypertension (principal)

== ENCOUNTER → 2022-10-26 | Outpatient (CLI) | payer MEDICARE, OTHER ==
[~2022-10-26] MED LIST changes: +FLUT50SP17; -FLUTISP
[2022-10-26 14:10] LABS: HEMATOCRIT 53.5 % (36.0-47.0); HEMOGLOBIN 16.3 g/dl (12.0-15.5); MEAN CORPUSCULAR HEMOGLOBIN 26.9 pg (27.0-33.0); MEAN CORPUSCULAR HGB CONC 30.5 g/dl (32.0-36.5); MEAN CORPUSCULAR VOLUME 88.1 fl (80.0-96.0); PLATELET COUNT, AUTOMATED 228 10^3/uL (150-450); RED BLOOD COUNT 6.07 10^6/uL (4.00-5.40); WHITE BLOOD COUNT 4.2 10^3/uL (4.0-10.0)
[2022-10-26 14:24] LABS: C REACTIVE PROTEIN QUANTITATIV < 0.40 MG/DL (<1.0)
[2022-10-26 14:28] LABS: ALBUMIN 3.7 G/DL (3.2-5.2); ALKALINE PHOSPHATASE 95 U/L (46-116); ALT/SGPT 18 U/L (7.0-40); AST/SGOT 16 U/L (<34); BILIRUBIN,TOTAL 0.4 MG/DL (0.3-1.2); BLOOD UREA NITROGEN 17 MG/DL (9-23); CALCIUM LEVEL 9.6 MG/DL (8.3-10.6); CARBON DIOXIDE LEVEL 30 MMOL/L (20-31); CHLORIDE LEVEL 104 MMOL/L (98-107); CHOLESTEROL LEVEL 176 MG/DL (<200); CREATININE FOR GFR 0.92 MG/DL (0.55-1.30); FREE T4 1.05 NG/DL (0.89-1.76); GLOMERULAR FILTRATION RATE > 60.0 (>39); GLUCOSE, FASTING 85 MG/DL (74-106); HDL CHOLESTEROL 70.2 MG/DL (>40); HEMOGLOBIN A1c 5.2 % (4.0-6.0); NON-HDL-C 105.8 MG/DL; POTASSIUM SERUM 4.6 MMOL/L (3.5-5.1); SODIUM LEVEL 139 MMOL/L (136-145); THYROID STIMULATING HORMONE 2.348 uIU/ML (0.55-4.78); TOTAL 25(OH) VITAMIN D 48.4 NG/ML (20.0-100.0); TRIGLYCERIDES LEVEL 74 MG/DL (<150); VITAMIN B12 LEVEL 272 PG/ML (211-911)
[2022-10-26 14:33] LABS: MALB URINE SIEMENS < 3.0 MG/L; MAU/CREAT RATIO 5.6 MCG/MG (0.0-30.0)
== END ==
LOC: M PLALAB 09:53
PROVIDERS: ATTEND Internal Medicine Hematology
DX: E78.00 Pure hypercholesterolemia, unspecified (principal)

== ENCOUNTER → 2022-10-28 | Outpatient (CLI) | payer MEDICARE, OTHER ==
[2022-10-28 14:24] LABS: BASO # 0.1 10^3/uL (0.0-0.2); BASO % 1.4 % (0.0-1.0); EOS # 0.1 10^3/uL (0.0-0.5); EOS % 2.1 % (0.0-3.0); HEMATOCRIT 52.5 % (36.0-47.0); HEMOGLOBIN 16.5 g/dl (12.0-15.5); LYMPH # 0.8 10^3/uL (1.5-5.0); LYMPH % 18.6 % (24.0-44.0); MEAN CORPUSCULAR HEMOGLOBIN 27.4 pg (27.0-33.0); MEAN CORPUSCULAR HGB CONC 31.4 g/dl (32.0-36.5); MEAN CORPUSCULAR VOLUME 87.2 fl (80.0-96.0); MONO # 0.4 10^3/uL (0.0-0.8); MONO % 8.4 % (2.0-8.0); NEUTROPHILS % 69.3 % (36.0-66.0); RED BLOOD COUNT 6.02 10^6/uL (4.00-5.40); WHITE BLOOD COUNT 4.3 10^3/uL (4.0-10.0)
[2022-10-28 14:27] LABS: PLATELET COUNT, AUTOMATED 210 10^3/uL (150-450)
[2022-10-29 14:23] LABS: JAK2 MUTATIONS FOR PATH SENDOU See Pathology Report
== END ==
LOC: M PLALAB 11:23
PROVIDERS: ATTEND Internal Medicine Hematology
DX: D64.9 Anemia, unspecified (principal)

== ENCOUNTER → 2022-11-13 | Outpatient (CLI) | payer MEDICARE, OTHER ==
[~2022-11-13] VITALS: Ht 157.5 cm; Wt 58.5 kg
[2022-11-13 13:45] VITALS: BP 148/78; O2SAT 99
[2022-11-13 14:13] LABS: HEMATOCRIT 49.6 % (36.0-47.0); HEMOGLOBIN 15.4 g/dl (12.0-15.5); PLATELET COUNT, AUTOMATED 206 10^3/uL (150-450); WHITE BLOOD COUNT 4.4 10^3/uL (4.0-10.0)
[2022-11-13 15:02] VITALS: BP 122/77; O2SAT 98
== END ==
LOC: M INFU 13:26
PROVIDERS: ATTEND Internal Medicine Hematology
DX: D45 Polycythemia vera (principal); Z88.2 Allergy status to sulfonamides; Z88.1 Allergy status to other antibiotic agents; Z88.6 Allergy status to analgesic agent

== ENCOUNTER 2022-11-26 15:00 | Outpatient (CLI) | payer MEDICARE, OTHER ==
[2022-11-26 16:49] LABS: HEMATOCRIT 44.3 % (36.0-47.0); MEAN CORPUSCULAR HEMOGLOBIN 27.7 pg (27.0-33.0); MEAN CORPUSCULAR HGB CONC 31.6 g/dl (32.0-36.5); MEAN CORPUSCULAR VOLUME 87.5 fl (80.0-96.0); PLATELET COUNT, AUTOMATED 109 10^3/uL (150-450); RED BLOOD COUNT 5.06 10^6/uL (4.00-5.40); WHITE BLOOD COUNT 3.2 10^3/uL (4.0-10.0)
[2022-11-26 16:58] VITALS: BP 146/87; O2SAT 98
== END 2022-11-26 17:00 ==
LOC: M INFU 15:00
PROVIDERS: ATTEND Internal Medicine Hematology
DX: D45 Polycythemia vera (principal); Z88.2 Allergy status to sulfonamides; Z88.1 Allergy status to other antibiotic agents; Z88.6 Allergy status to analgesic agent

== ENCOUNTER → 2022-12-09 | Outpatient (CLI) | payer MEDICARE, OTHER ==
[2022-12-09 14:29] LABS: BASO % 1.1 % (0.0-1.0); EOS # 0.1 10^3/uL (0.0-0.5); EOS % 1.8 % (0.0-3.0); HEMATOCRIT 41.7 % (36.0-47.0); HEMOGLOBIN 13.2 g/dl (12.0-15.5); LYMPH # 0.9 10^3/uL (1.5-5.0); LYMPH % 30.5 % (24.0-44.0); MEAN CORPUSCULAR HEMOGLOBIN 28.5 pg (27.0-33.0); MEAN CORPUSCULAR HGB CONC 31.7 g/dl (32.0-36.5); MEAN CORPUSCULAR VOLUME 90.1 fl (80.0-96.0); MONO # 0.3 10^3/uL (0.0-0.8); MONO % 8.8 % (2.0-8.0); NEUTROPHILS # 1.6 10^3/uL (1.5-8.5); NEUTROPHILS % 57.4 % (36.0-66.0); RED BLOOD COUNT 4.63 10^6/uL (4.00-5.40); WHITE BLOOD COUNT 2.9 10^3/uL (4.0-10.0)
[2022-12-09 15:00] LABS: PLATELET COUNT, AUTOMATED 81 10^3/uL (150-450)
== END ==
LOC: M PLALAB 09:22
PROVIDERS: ATTEND Internal Medicine Hematology
DX: D45 Polycythemia vera (principal)

== ENCOUNTER → 2022-12-15 | Outpatient (CLI) | payer MEDICARE, OTHER ==
[2022-12-15 10:46] LABS: BASO % 0.8 % (0.0-1.0); EOS # 0.1 10^3/uL (0.0-0.5); EOS % 3.2 % (0.0-3.0); HEMATOCRIT 41.7 % (36.0-47.0); LYMPH # 0.8 10^3/uL (1.5-5.0); LYMPH % 33.2 % (24.0-44.0); MEAN CORPUSCULAR HEMOGLOBIN 28.4 pg (27.0-33.0); MEAN CORPUSCULAR HGB CONC 31.2 g/dl (32.0-36.5); MEAN CORPUSCULAR VOLUME 91.2 fl (80.0-96.0); MONO # 0.2 10^3/uL (0.0-0.8); MONO % 8.1 % (2.0-8.0); NEUTROPHILS # 1.4 10^3/uL (1.5-8.5); NEUTROPHILS % 54.7 % (36.0-66.0); PLATELET COUNT, AUTOMATED 109 10^3/uL (150-450); RED BLOOD COUNT 4.57 10^6/uL (4.00-5.40); WHITE BLOOD COUNT 2.5 10^3/uL (4.0-10.0)
== END ==
LOC: M PLALAB 08:52
PROVIDERS: ATTEND Internal Medicine Hematology
DX: D45 Polycythemia vera (principal)

== ENCOUNTER → 2022-12-22 | Outpatient (CLI) | payer MEDICARE, OTHER ==
[2022-12-22 14:07] LABS: EOS # 0.1 10^3/uL (0.0-0.5); EOS % 2.7 % (0.0-3.0); HEMATOCRIT 38.1 % (36.0-47.0); HEMOGLOBIN 12.3 g/dl (12.0-15.5); LYMPH # 0.8 10^3/uL (1.5-5.0); LYMPH % 35.1 % (24.0-44.0); MEAN CORPUSCULAR HEMOGLOBIN 29.4 pg (27.0-33.0); MEAN CORPUSCULAR HGB CONC 32.3 g/dl (32.0-36.5); MEAN CORPUSCULAR VOLUME 90.9 fl (80.0-96.0); MONO # 0.2 10^3/uL (0.0-0.8); MONO % 8.1 % (2.0-8.0); NEUTROPHILS # 1.2 10^3/uL (1.5-8.5); NEUTROPHILS % 53.6 % (36.0-66.0); PLATELET COUNT, AUTOMATED 131 10^3/uL (150-450); RED BLOOD COUNT 4.19 10^6/uL (4.00-5.40); WHITE BLOOD COUNT 2.2 10^3/uL (4.0-10.0)
[2022-12-22 14:33] LABS: ALBUMIN 3.8 G/DL (3.2-5.2); ALKALINE PHOSPHATASE 77 U/L (46-116); ALT/SGPT 26 U/L (7.0-40); AST/SGOT 17 U/L (<34); BILIRUBIN,TOTAL 0.5 MG/DL (0.3-1.2); BLOOD UREA NITROGEN 13 MG/DL (9-23); CALCIUM LEVEL 9.1 MG/DL (8.3-10.6); CARBON DIOXIDE LEVEL 31 MMOL/L (20-31); CHLORIDE LEVEL 105 MMOL/L (98-107); CREATININE FOR GFR 0.87 MG/DL (0.55-1.30); GLOMERULAR FILTRATION RATE > 60.0 (>39); GLUCOSE, FASTING 80 MG/DL (74-106); POTASSIUM SERUM 4.4 MMOL/L (3.5-5.1); SODIUM LEVEL 141 MMOL/L (136-145); TOTAL PROTEIN 6.7 G/DL (5.7-8.2)
== END ==
LOC: M PLALAB 10:49
PROVIDERS: ATTEND Internal Medicine Hematology
DX: D45 Polycythemia vera (principal)

== ENCOUNTER → 2022-12-29 | Outpatient (CLI) | payer MEDICARE, OTHER ==
[2022-12-29 13:39] LABS: BASO % 0.4 % (0.0-1.0); EOS % 1.2 % (0.0-3.0); HEMATOCRIT 37.4 % (36.0-47.0); HEMOGLOBIN 11.9 g/dl (12.0-15.5); LYMPH # 0.7 10^3/uL (1.5-5.0); LYMPH % 28.2 % (24.0-44.0); MEAN CORPUSCULAR HEMOGLOBIN 29.5 pg (27.0-33.0); MEAN CORPUSCULAR HGB CONC 31.8 g/dl (32.0-36.5); MEAN CORPUSCULAR VOLUME 92.6 fl (80.0-96.0); MONO # 0.3 10^3/uL (0.0-0.8); MONO % 10.4 % (2.0-8.0); NEUTROPHILS # 1.4 10^3/uL (1.5-8.5); NEUTROPHILS % 59.8 % (36.0-66.0); PLATELET COUNT, AUTOMATED 168 10^3/uL (150-450); RED BLOOD COUNT 4.04 10^6/uL (4.00-5.40); WHITE BLOOD COUNT 2.4 10^3/uL (4.0-10.0)
== END ==
LOC: M PLALAB 10:29
PROVIDERS: ATTEND Internal Medicine Hematology
DX: D45 Polycythemia vera (principal)

== ENCOUNTER → 2023-01-12 | Outpatient (CLI) | payer MEDICARE, OTHER ==
[2023-01-12 15:29] LABS: BASO % 0.9 % (0.0-1.0); EOS % 1.1 % (0.0-3.0); HEMATOCRIT 37.4 % (36.0-47.0); HEMOGLOBIN 12.3 g/dl (12.0-15.5); LYMPH # 0.9 10^3/uL (1.5-5.0); LYMPH % 26.4 % (24.0-44.0); MEAN CORPUSCULAR HEMOGLOBIN 30.9 pg (27.0-33.0); MEAN CORPUSCULAR HGB CONC 32.9 g/dl (32.0-36.5); MONO # 0.4 10^3/uL (0.0-0.8); MONO % 10.8 % (2.0-8.0); NEUTROPHILS # 2.1 10^3/uL (1.5-8.5); NEUTROPHILS % 60.2 % (36.0-66.0); PLATELET COUNT, AUTOMATED 189 10^3/uL (150-450); RED BLOOD COUNT 3.98 10^6/uL (4.00-5.40); WHITE BLOOD COUNT 3.5 10^3/uL (4.0-10.0)
== END ==
LOC: M PLALAB 11:39
PROVIDERS: ATTEND Internal Medicine Hematology
DX: D45 Polycythemia vera (principal)

== ENCOUNTER → 2023-01-27 | Outpatient (CLI) | payer MEDICARE, OTHER ==
[2023-01-27 14:25] LABS: BASO % 0.6 % (0.0-1.0); EOS % 0.9 % (0.0-3.0); HEMATOCRIT 40.1 % (36.0-47.0); HEMOGLOBIN 12.8 g/dl (12.0-15.5); LYMPH # 0.8 10^3/uL (1.5-5.0); LYMPH % 23.6 % (24.0-44.0); MEAN CORPUSCULAR HEMOGLOBIN 31.1 pg (27.0-33.0); MEAN CORPUSCULAR HGB CONC 31.9 g/dl (32.0-36.5); MEAN CORPUSCULAR VOLUME 97.6 fl (80.0-96.0); MONO # 0.2 10^3/uL (0.0-0.8); MONO % 7.2 % (2.0-8.0); NEUTROPHILS # 2.3 10^3/uL (1.5-8.5); NEUTROPHILS % 67.1 % (36.0-66.0); PLATELET COUNT, AUTOMATED 172 10^3/uL (150-450); RED BLOOD COUNT 4.11 10^6/uL (4.00-5.40); WHITE BLOOD COUNT 3.4 10^3/uL (4.0-10.0)
== END ==
LOC: M PLALAB 10:55
PROVIDERS: ATTEND Internal Medicine Hematology
DX: D45 Polycythemia vera (principal)

== ENCOUNTER → 2023-02-02 | Outpatient (CLI) | payer MEDICARE, OTHER ==
[2023-02-02 16:59] LABS: ALBUMIN 3.8 G/DL (3.2-5.2); ALKALINE PHOSPHATASE 80 U/L (46-116); ALT/SGPT 29 U/L (7.0-40); AST/SGOT 19 U/L (<34); BILIRUBIN,TOTAL 0.5 MG/DL (0.3-1.2); BLOOD UREA NITROGEN 18 MG/DL (9-23); CALCIUM LEVEL 9.1 MG/DL (8.3-10.6); CARBON DIOXIDE LEVEL 27 MMOL/L (20-31); CHLORIDE LEVEL 102 MMOL/L (98-107); CPK CREATINE PHOSPHOKINASE 28 U/L (34-145); CREATININE FOR GFR 0.95 MG/DL (0.55-1.30); GLOMERULAR FILTRATION RATE > 60.0 (>39); GLUCOSE, FASTING 93 MG/DL (74-106); POTASSIUM SERUM 4.6 MMOL/L (3.5-5.1); SODIUM LEVEL 134 MMOL/L (136-145); TOTAL PROTEIN 6.8 G/DL (5.7-8.2); VITAMIN B12 LEVEL 746 PG/ML (211-911)
[2023-02-02 17:00] LABS: FREE T4 1.06 NG/DL (0.89-1.76); THYROID STIMULATING HORMONE 3.273 uIU/ML (0.55-4.78)
[2023-02-02 17:43] LABS: HEMOGLOBIN A1c 4.8 % (4.0-6.0)
== END ==
LOC: M PLALAB 13:37
PROVIDERS: ATTEND Internal Medicine Hematology
DX: U09.9 Post COVID-19 condition, unspecified (principal); Z79.899 Other long term (current) drug therapy

== ENCOUNTER → 2023-02-24 | Outpatient (CLI) | payer MEDICARE, OTHER ==
[2023-02-24 16:14] LABS: BASO % 0.8 % (0.0-1.0); EOS # 0.1 10^3/uL (0.0-0.5); EOS % 2.7 % (0.0-3.0); HEMATOCRIT 38.1 % (36.0-47.0); HEMOGLOBIN 12.6 g/dl (12.0-15.5); LYMPH # 0.8 10^3/uL (1.5-5.0); LYMPH % 21.3 % (24.0-44.0); MEAN CORPUSCULAR HEMOGLOBIN 34.2 pg (27.0-33.0); MEAN CORPUSCULAR HGB CONC 33.1 g/dl (32.0-36.5); MEAN CORPUSCULAR VOLUME 103.5 fl (80.0-96.0); MONO # 0.3 10^3/uL (0.0-0.8); MONO % 8.5 % (2.0-8.0); NEUTROPHILS # 2.5 10^3/uL (1.5-8.5); NEUTROPHILS % 66.4 % (36.0-66.0); PLATELET COUNT, AUTOMATED 175 10^3/uL (150-450); RED BLOOD COUNT 3.68 10^6/uL (4.00-5.40); WHITE BLOOD COUNT 3.8 10^3/uL (4.0-10.0)
== END ==
LOC: M PLALAB 13:40
PROVIDERS: ATTEND Internal Medicine Hematology
DX: D45 Polycythemia vera (principal)

== ENCOUNTER → 2023-03-24 | Outpatient (CLI) | payer MEDICARE, OTHER ==
[2023-03-24 16:09] LABS: BASO % 0.8 % (0.0-1.0); EOS # 0.1 10^3/uL (0.0-0.5); EOS % 2.6 % (0.0-3.0); HEMATOCRIT 39.1 % (36.0-47.0); HEMOGLOBIN 12.7 g/dl (12.0-15.5); LYMPH # 0.9 10^3/uL (1.5-5.0); LYMPH % 23.6 % (24.0-44.0); MEAN CORPUSCULAR HEMOGLOBIN 34.3 pg (27.0-33.0); MEAN CORPUSCULAR HGB CONC 32.5 g/dl (32.0-36.5); MEAN CORPUSCULAR VOLUME 105.7 fl (80.0-96.0); MONO # 0.3 10^3/uL (0.0-0.8); MONO % 7.3 % (2.0-8.0); NEUTROPHILS # 2.5 10^3/uL (1.5-8.5); NEUTROPHILS % 65.4 % (36.0-66.0); PLATELET COUNT, AUTOMATED 178 10^3/uL (150-450); WHITE BLOOD COUNT 3.8 10^3/uL (4.0-10.0)
[2023-03-24 16:28] LABS: ALBUMIN 3.7 G/DL (3.2-5.2); ALKALINE PHOSPHATASE 83 U/L (46-116); ALT/SGPT 21 U/L (7.0-40); AST/SGOT 20 U/L (<34); BILIRUBIN,TOTAL 0.3 MG/DL (0.3-1.2); BLOOD UREA NITROGEN 11 MG/DL (9-23); CARBON DIOXIDE LEVEL 30 MMOL/L (20-31); CHLORIDE LEVEL 105 MMOL/L (98-107); CREATININE FOR GFR 0.83 MG/DL (0.55-1.30); GLOMERULAR FILTRATION RATE > 60.0 (>39); GLUCOSE, FASTING 101 MG/DL (74-106); POTASSIUM SERUM 4.1 MMOL/L (3.5-5.1); SODIUM LEVEL 141 MMOL/L (136-145); TOTAL PROTEIN 6.8 G/DL (5.7-8.2)
== END ==
LOC: M PLALAB 14:17
PROVIDERS: ATTEND Internal Medicine Hematology
DX: D45 Polycythemia vera (principal)

== ENCOUNTER → 2023-04-21 | Outpatient (CLI) | payer MEDICARE, OTHER ==
[~2023-04-21] MED LIST changes: -FLUT50SP17; +FLUTISP
[2023-04-21 16:06] LABS: BASO # 0.1 10^3/uL (0.0-0.2); BASO % 1.2 % (0.0-1.0); EOS # 0.2 10^3/uL (0.0-0.5); EOS % 4.2 % (0.0-3.0); HEMATOCRIT 42.7 % (36.0-47.0); HEMOGLOBIN 13.8 g/dl (12.0-15.5); LYMPH # 0.9 10^3/uL (1.5-5.0); LYMPH % 21.5 % (24.0-44.0); MEAN CORPUSCULAR HEMOGLOBIN 32.8 pg (27.0-33.0); MEAN CORPUSCULAR HGB CONC 32.3 g/dl (32.0-36.5); MEAN CORPUSCULAR VOLUME 101.4 fl (80.0-96.0); MONO # 0.3 10^3/uL (0.0-0.8); MONO % 7.3 % (2.0-8.0); NEUTROPHILS # 2.8 10^3/uL (1.5-8.5); NEUTROPHILS % 65.6 % (36.0-66.0); PLATELET COUNT, AUTOMATED 193 10^3/uL (150-450); RED BLOOD COUNT 4.21 10^6/uL (4.00-5.40); WHITE BLOOD COUNT 4.3 10^3/uL (4.0-10.0)
== END ==
LOC: M PLALAB 13:34
PROVIDERS: ATTEND Internal Medicine Hematology
DX: D45 Polycythemia vera (principal)

== ENCOUNTER → 2023-05-19 | Outpatient (CLI) | payer MEDICARE, OTHER ==
[2023-05-19 15:44] LABS: BASO % 0.9 % (0.0-1.0); EOS # 0.2 10^3/uL (0.0-0.5); EOS % 4.2 % (0.0-3.0); HEMATOCRIT 44.8 % (36.0-47.0); HEMOGLOBIN 14.4 g/dl (12.0-15.5); LYMPH # 1.1 10^3/uL (1.5-5.0); LYMPH % 25.5 % (24.0-44.0); MEAN CORPUSCULAR HEMOGLOBIN 32.3 pg (27.0-33.0); MEAN CORPUSCULAR HGB CONC 32.1 g/dl (32.0-36.5); MEAN CORPUSCULAR VOLUME 100.4 fl (80.0-96.0); MONO # 0.3 10^3/uL (0.0-0.8); MONO % 6.5 % (2.0-8.0); NEUTROPHILS # 2.7 10^3/uL (1.5-8.5); NEUTROPHILS % 62.2 % (36.0-66.0); PLATELET COUNT, AUTOMATED 182 10^3/uL (150-450); RED BLOOD COUNT 4.46 10^6/uL (4.00-5.40); WHITE BLOOD COUNT 4.3 10^3/uL (4.0-10.0)
== END ==
LOC: M PLALAB 11:57
PROVIDERS: ATTEND Internal Medicine Hematology
DX: D45 Polycythemia vera (principal)

== ENCOUNTER → 2023-06-16 | Outpatient (CLI) | payer MEDICARE, OTHER ==
[2023-06-16 13:42] LABS: HEMATOCRIT 43.4 % (36.0-47.0); HEMOGLOBIN 13.9 g/dl (12.0-15.5); MEAN CORPUSCULAR HEMOGLOBIN 31.8 pg (27.0-33.0); MEAN CORPUSCULAR VOLUME 99.3 fl (80.0-96.0); PLATELET COUNT, AUTOMATED 188 10^3/uL (150-450); RED BLOOD COUNT 4.37 10^6/uL (4.00-5.40); WHITE BLOOD COUNT 4.5 10^3/uL (4.0-10.0)
[2023-06-16 13:51] LABS: HEMOGLOBIN A1c 5.2 % (4.0-6.0)
[2023-06-16 13:55] LABS: CREATININE, URINE 42.6 MG/DL; MALB URINE SIEMENS < 3.0 MG/L
[2023-06-16 13:59] LABS: ALBUMIN 3.5 G/DL (3.2-5.2); ALKALINE PHOSPHATASE 85 U/L (46-116); ALT/SGPT 23 U/L (7.0-40); AST/SGOT 19 U/L (<34); BILIRUBIN,TOTAL 0.5 MG/DL (0.3-1.2); BLOOD UREA NITROGEN 11 MG/DL (9-23); CALCIUM LEVEL 9.2 MG/DL (8.3-10.6); CARBON DIOXIDE LEVEL 31 MMOL/L (20-31); CHLORIDE LEVEL 104 MMOL/L (98-107); CHOLESTEROL LEVEL 202 MG/DL (<200); CHOLESTEROL RISK RATIO 3.48 (<5); CREATININE FOR GFR 0.83 MG/DL (0.55-1.30); FREE T4 1.24 NG/DL (0.89-1.76); GLOMERULAR FILTRATION RATE > 60.0 (>39); GLUCOSE, FASTING 60 MG/DL (74-106); HDL CHOLESTEROL 57.9 MG/DL (>40); LDL CHOLESTEROL 121.9 MG/DL (<100); NON-HDL-C 144.1 MG/DL; POTASSIUM SERUM 4.7 MMOL/L (3.5-5.1); SODIUM LEVEL 139 MMOL/L (136-145); THYROID STIMULATING HORMONE 1.731 uIU/ML (0.55-4.78); TRIGLYCERIDES LEVEL 111 MG/DL (<150)
[2023-06-16 14:01] LABS: TOTAL 25(OH) VITAMIN D 50.5 NG/ML (20.0-100.0); VITAMIN B12 LEVEL 662 PG/ML (211-911)
== END ==
LOC: M PLALAB 10:56
PROVIDERS: ATTEND Internal Medicine Hematology
DX: I10 Essential (primary) hypertension (principal); Z79.899 Other long term (current) drug therapy

== ENCOUNTER → 2023-07-14 | Outpatient (CLI) | payer MEDICARE, OTHER ==
[2023-07-14 15:28] LABS: BASO % 0.6 % (0.0-1.0); EOS # 0.2 10^3/uL (0.0-0.5); HEMOGLOBIN 13.8 g/dl (12.0-15.5); LYMPH # 1.1 10^3/uL (1.5-5.0); LYMPH % 22.7 % (24.0-44.0); MEAN CORPUSCULAR HEMOGLOBIN 33.1 pg (27.0-33.0); MEAN CORPUSCULAR HGB CONC 32.9 g/dl (32.0-36.5); MEAN CORPUSCULAR VOLUME 100.7 fl (80.0-96.0); MONO # 0.3 10^3/uL (0.0-0.8); MONO % 7.1 % (2.0-8.0); NEUTROPHILS # 3.1 10^3/uL (1.5-8.5); NEUTROPHILS % 65.2 % (36.0-66.0); PLATELET COUNT, AUTOMATED 216 10^3/uL (150-450); RED BLOOD COUNT 4.17 10^6/uL (4.00-5.40); WHITE BLOOD COUNT 4.8 10^3/uL (4.0-10.0)
== END ==
LOC: M PLALAB 13:07
PROVIDERS: ATTEND Internal Medicine Hematology
DX: D45 Polycythemia vera (principal)

== ENCOUNTER → 2023-08-11 | Outpatient (CLI) | payer MEDICARE, OTHER ==
[2023-08-11 18:12] LABS: BASO # 0.1 10^3/uL (0.0-0.2); BASO % 0.9 % (0.0-1.0); EOS # 0.2 10^3/uL (0.0-0.5); EOS % 3.7 % (0.0-3.0); HEMATOCRIT 42.3 % (36.0-47.0); HEMOGLOBIN 13.6 g/dl (12.0-15.5); LYMPH % 17.4 % (24.0-44.0); MEAN CORPUSCULAR HEMOGLOBIN 32.5 pg (27.0-33.0); MEAN CORPUSCULAR HGB CONC 32.2 g/dl (32.0-36.5); MEAN CORPUSCULAR VOLUME 101.2 fl (80.0-96.0); MONO # 0.3 10^3/uL (0.0-0.8); MONO % 5.9 % (2.0-8.0); NEUTROPHILS # 3.9 10^3/uL (1.5-8.5); NEUTROPHILS % 71.9 % (36.0-66.0); PLATELET COUNT, AUTOMATED 204 10^3/uL (150-450); RED BLOOD COUNT 4.18 10^6/uL (4.00-5.40); WHITE BLOOD COUNT 5.5 10^3/uL (4.0-10.0)
[2023-08-11 18:49] LABS: ALBUMIN 3.6 G/DL (3.2-5.2); ALKALINE PHOSPHATASE 83 U/L (46-116); ALT/SGPT 15 U/L (7.0-40); AST/SGOT 21 U/L (<34); BILIRUBIN,TOTAL 0.4 MG/DL (0.3-1.2); BLOOD UREA NITROGEN 15 MG/DL (9-23); CALCIUM LEVEL 9.1 MG/DL (8.3-10.6); CARBON DIOXIDE LEVEL 31 MMOL/L (20-31); CHLORIDE LEVEL 103 MMOL/L (98-107); CREATININE FOR GFR 0.86 MG/DL (0.55-1.30); GLOMERULAR FILTRATION RATE > 60.0 (>39); GLUCOSE, FASTING 90 MG/DL (74-106); SODIUM LEVEL 137 MMOL/L (136-145); TOTAL PROTEIN 6.7 G/DL (5.7-8.2)
== END ==
LOC: M PLALAB 15:05
PROVIDERS: ATTEND Internal Medicine Hematology
DX: D45 Polycythemia vera (principal)

== ENCOUNTER → 2023-10-06 | Outpatient (CLI) | payer MEDICARE, OTHER ==
[2023-10-06 15:40] LABS: BASO % 0.9 % (0.0-1.0); EOS # 0.2 10^3/uL (0.0-0.5); EOS % 3.5 % (0.0-3.0); HEMATOCRIT 44.1 % (36.0-47.0); HEMOGLOBIN 14.1 g/dl (12.0-15.5); LYMPH # 0.8 10^3/uL (1.5-5.0); LYMPH % 18.3 % (24.0-44.0); MEAN CORPUSCULAR HEMOGLOBIN 31.7 pg (27.0-33.0); MEAN CORPUSCULAR VOLUME 99.1 fl (80.0-96.0); MONO # 0.3 10^3/uL (0.0-0.8); MONO % 6.6 % (2.0-8.0); NEUTROPHILS # 3.2 10^3/uL (1.5-8.5); NEUTROPHILS % 70.5 % (36.0-66.0); PLATELET COUNT, AUTOMATED 174 10^3/uL (150-450); RED BLOOD COUNT 4.45 10^6/uL (4.00-5.40); WHITE BLOOD COUNT 4.5 10^3/uL (4.0-10.0)
== END ==
LOC: M PLALAB 14:00
PROVIDERS: ATTEND Internal Medicine Hematology
DX: D45 Polycythemia vera (principal)

== ENCOUNTER → 2023-11-17 | Outpatient (CLI) | payer MEDICARE, OTHER ==
[2023-11-17 17:35] LABS: BASO # 0.1 10^3/uL (0.0-0.2); EOS # 0.2 10^3/uL (0.0-0.5); EOS % 3.1 % (0.0-3.0); HEMATOCRIT 45.5 % (36.0-47.0); HEMOGLOBIN 14.3 g/dl (12.0-15.5); LYMPH % 19.8 % (24.0-44.0); MEAN CORPUSCULAR HEMOGLOBIN 31.2 pg (27.0-33.0); MEAN CORPUSCULAR HGB CONC 31.4 g/dl (32.0-36.5); MEAN CORPUSCULAR VOLUME 99.1 fl (80.0-96.0); MONO # 0.4 10^3/uL (0.0-0.8); MONO % 7.3 % (2.0-8.0); NEUTROPHILS # 3.3 10^3/uL (1.5-8.5); NEUTROPHILS % 68.2 % (36.0-66.0); PLATELET COUNT, AUTOMATED 178 10^3/uL (150-450); RED BLOOD COUNT 4.59 10^6/uL (4.00-5.40); WHITE BLOOD COUNT 4.8 10^3/uL (4.0-10.0)
== END ==
LOC: M PLALAB 15:16
PROVIDERS: ATTEND Internal Medicine Hematology
DX: D45 Polycythemia vera (principal)

== ENCOUNTER → 2023-12-01 | Outpatient (CLI) | payer MEDICARE, OTHER ==
[2023-12-01 15:46] LABS: BASO % 0.8 % (0.0-1.0); EOS # 0.1 10^3/uL (0.0-0.5); EOS % 2.8 % (0.0-3.0); HEMATOCRIT 46.9 % (36.0-47.0); LYMPH % 20.7 % (24.0-44.0); MEAN CORPUSCULAR HEMOGLOBIN 31.6 pg (27.0-33.0); MEAN CORPUSCULAR VOLUME 98.7 fl (80.0-96.0); MONO # 0.4 10^3/uL (0.0-0.8); MONO % 7.1 % (2.0-8.0); NEUTROPHILS # 3.4 10^3/uL (1.5-8.5); NEUTROPHILS % 68.4 % (36.0-66.0); PLATELET COUNT, AUTOMATED 186 10^3/uL (150-450); RED BLOOD COUNT 4.75 10^6/uL (4.00-5.40); WHITE BLOOD COUNT 4.9 10^3/uL (4.0-10.0)
== END ==
LOC: M PLALAB 13:36
PROVIDERS: ATTEND Internal Medicine Hematology
DX: D45 Polycythemia vera (principal)

== ENCOUNTER → 2023-12-13 | Outpatient (CLI) | payer MEDICARE, OTHER ==
[2023-12-13 19:42] LABS: BASO % 0.8 % (0.0-1.0); EOS # 0.2 10^3/uL (0.0-0.5); EOS % 4.2 % (0.0-3.0); HEMATOCRIT 47.3 % (36.0-47.0); HEMOGLOBIN 15.1 g/dl (12.0-15.5); LYMPH % 20.7 % (24.0-44.0); MEAN CORPUSCULAR HEMOGLOBIN 31.8 pg (27.0-33.0); MEAN CORPUSCULAR HGB CONC 31.9 g/dl (32.0-36.5); MEAN CORPUSCULAR VOLUME 99.6 fl (80.0-96.0); MONO # 0.4 10^3/uL (0.0-0.8); MONO % 7.8 % (2.0-8.0); NEUTROPHILS # 3.3 10^3/uL (1.5-8.5); NEUTROPHILS % 66.3 % (36.0-66.0); PLATELET COUNT, AUTOMATED 186 10^3/uL (150-450); RED BLOOD COUNT 4.75 10^6/uL (4.00-5.40)
== END ==
LOC: M PLALAB 14:42
PROVIDERS: ATTEND Internal Medicine Hematology
DX: D45 Polycythemia vera (principal)

== ENCOUNTER → 2023-12-21 | Outpatient (CLI) | payer MEDICARE, OTHER ==
[2023-12-21 14:13] LABS: BASO # 0.1 10^3/uL (0.0-0.2); BASO % 1.3 % (0.0-1.0); EOS # 0.2 10^3/uL (0.0-0.5); EOS % 4.2 % (0.0-3.0); HEMATOCRIT 46.2 % (36.0-47.0); LYMPH # 0.8 10^3/uL (1.5-5.0); LYMPH % 21.8 % (24.0-44.0); MEAN CORPUSCULAR HEMOGLOBIN 32.1 pg (27.0-33.0); MEAN CORPUSCULAR HGB CONC 32.5 g/dl (32.0-36.5); MEAN CORPUSCULAR VOLUME 98.7 fl (80.0-96.0); MONO # 0.3 10^3/uL (0.0-0.8); MONO % 7.6 % (2.0-8.0); NEUTROPHILS # 2.5 10^3/uL (1.5-8.5); NEUTROPHILS % 64.8 % (36.0-66.0); PLATELET COUNT, AUTOMATED 194 10^3/uL (150-450); RED BLOOD COUNT 4.68 10^6/uL (4.00-5.40); WHITE BLOOD COUNT 3.8 10^3/uL (4.0-10.0)
[2023-12-21 14:37] LABS: HEMOGLOBIN A1c 5.1 % (4.0-6.0)
[2023-12-21 14:39] LABS: C REACTIVE PROTEIN QUANTITATIV < 0.40 MG/DL (<1.0); CREATININE, URINE 57.8 MG/DL; MALB URINE SIEMENS < 3.0 MG/L; MAU/CREAT RATIO 5.1 MCG/MG (0.0-30.0)
[2023-12-21 14:41] LABS: ALBUMIN 3.9 G/DL (3.2-5.2); ALKALINE PHOSPHATASE 95 U/L (46-116); ALT/SGPT 20 U/L (7.0-40); AST/SGOT 20 U/L (<34); BILIRUBIN,TOTAL 0.5 MG/DL (0.3-1.2); BLOOD UREA NITROGEN 14 MG/DL (9-23); CALCIUM LEVEL 9.4 MG/DL (8.3-10.6); CARBON DIOXIDE LEVEL 32 MMOL/L (20-31); CHLORIDE LEVEL 106 MMOL/L (98-107); CHOLESTEROL LEVEL 183 MG/DL (<200); CHOLESTEROL RISK RATIO 2.95 (<5); GLOMERULAR FILTRATION RATE > 60.0 (>39); GLUCOSE, FASTING 86 MG/DL (74-106); POTASSIUM SERUM 4.5 MMOL/L (3.5-5.1); SODIUM LEVEL 138 MMOL/L (136-145); TOTAL PROTEIN 7.2 G/DL (5.7-8.2); TRIGLYCERIDES LEVEL 130 MG/DL (<150)
[2023-12-21 14:43] LABS: THYROID STIMULATING HORMONE 2.395 uIU/ML (0.55-4.78); TOTAL 25(OH) VITAMIN D 47.1 NG/ML (20.0-100.0)
[2023-12-21 14:44] LABS: VITAMIN B12 LEVEL 696 PG/ML (211-911)
== END ==
LOC: M PLALAB 09:27
PROVIDERS: ATTEND Internal Medicine Hematology
DX: I10 Essential (primary) hypertension (principal)

== ENCOUNTER → 2023-12-29 | Outpatient (CLI) | payer MEDICARE, OTHER ==
[~2023-12-29] MED LIST changes: +GABA-1635 PO; -GABA800T4 PO
== END ==
LOC: M PLAIMG 12:31
PROVIDERS: ATTEND Internal Medicine Hematology
DX: I08.8 Other rheumatic multiple valve diseases (principal)

== ENCOUNTER → 2024-01-03 | Outpatient (REF) | payer MEDICARE, OTHER ==
[~2024-01-03] MED LIST changes: -GABA-1635 PO; +GABA800T4 PO
== END ==
LOC: M SFHCPLAZ 16:55
PROVIDERS: ATTEND Physician Assistant Medical
DX: J01.80 Other acute sinusitis (principal)

== ENCOUNTER → 2024-01-05 | Outpatient (CLI) | payer MEDICARE, OTHER ==
[2024-01-05 12:57] LABS: BASO % 0.6 % (0.0-1.0); EOS # 0.2 10^3/uL (0.0-0.5); EOS % 2.8 % (0.0-3.0); HEMATOCRIT 45.3 % (36.0-47.0); HEMOGLOBIN 14.6 g/dl (12.0-15.5); LYMPH # 0.8 10^3/uL (1.5-5.0); LYMPH % 14.3 % (24.0-44.0); MEAN CORPUSCULAR HEMOGLOBIN 31.7 pg (27.0-33.0); MEAN CORPUSCULAR HGB CONC 32.2 g/dl (32.0-36.5); MEAN CORPUSCULAR VOLUME 98.5 fl (80.0-96.0); MONO # 0.4 10^3/uL (0.0-0.8); MONO % 7.1 % (2.0-8.0); NEUTROPHILS % 74.8 % (36.0-66.0); PLATELET COUNT, AUTOMATED 200 10^3/uL (150-450); WHITE BLOOD COUNT 5.3 10^3/uL (4.0-10.0)
== END ==
LOC: M PLALAB 09:06
PROVIDERS: ATTEND Internal Medicine Hematology
DX: D45 Polycythemia vera (principal)

== ENCOUNTER 2024-01-06 10:18 | Outpatient (CLI) | payer MEDICARE, OTHER ==
[~2024-01-06 10:18] MED LIST changes: +GABA-1635 PO; -GABA800T4 PO
[2024-01-06 10:25] VITALS: BP 168/72; O2SAT 99
[2024-01-06 11:38] VITALS: BP 136/84; O2SAT 98
== END 2024-01-06 11:40 ==
LOC: M INFU 10:18
PROVIDERS: ATTEND Internal Medicine Hematology
DX: D45 Polycythemia vera (principal)

== ENCOUNTER → 2024-01-19 | Outpatient (CLI) | payer MEDICARE, OTHER ==
[2024-01-19 20:12] LABS: BASO % 0.8 % (0.0-1.0); EOS # 0.2 10^3/uL (0.0-0.5); EOS % 3.4 % (0.0-3.0); HEMATOCRIT 39.6 % (36.0-47.0); HEMOGLOBIN 12.8 g/dl (12.0-15.5); LYMPH # 0.9 10^3/uL (1.5-5.0); LYMPH % 17.4 % (24.0-44.0); MEAN CORPUSCULAR HGB CONC 32.3 g/dl (32.0-36.5); MEAN CORPUSCULAR VOLUME 102.1 fl (80.0-96.0); MONO # 0.3 10^3/uL (0.0-0.8); MONO % 6.6 % (2.0-8.0); NEUTROPHILS # 3.6 10^3/uL (1.5-8.5); NEUTROPHILS % 71.4 % (36.0-66.0); PLATELET COUNT, AUTOMATED 210 10^3/uL (150-450); RED BLOOD COUNT 3.88 10^6/uL (4.00-5.40)
== END ==
LOC: M PLALAB 14:41
PROVIDERS: ATTEND Internal Medicine Hematology
DX: D45 Polycythemia vera (principal)

== ENCOUNTER → 2024-01-25 | Outpatient (CLI) | payer MEDICARE, OTHER ==
[2024-01-25 18:32] LABS: BASO % 0.9 % (0.0-1.0); EOS # 0.2 10^3/uL (0.0-0.5); EOS % 4.5 % (0.0-3.0); HEMATOCRIT 40.1 % (36.0-47.0); LYMPH # 0.9 10^3/uL (1.5-5.0); LYMPH % 20.2 % (24.0-44.0); MEAN CORPUSCULAR HEMOGLOBIN 32.7 pg (27.0-33.0); MEAN CORPUSCULAR HGB CONC 32.4 g/dl (32.0-36.5); MONO # 0.3 10^3/uL (0.0-0.8); MONO % 6.4 % (2.0-8.0); NEUTROPHILS # 3.2 10^3/uL (1.5-8.5); NEUTROPHILS % 67.8 % (36.0-66.0); PLATELET COUNT, AUTOMATED 210 10^3/uL (150-450); RED BLOOD COUNT 3.97 10^6/uL (4.00-5.40); WHITE BLOOD COUNT 4.7 10^3/uL (4.0-10.0)
[2024-01-25 18:39] LABS: ERYTHROCYTE SEDIMENTATION RATE 15 mm/hr (0-30)
[2024-01-25 18:55] LABS: ALBUMIN 3.8 G/DL (3.2-5.2); ALKALINE PHOSPHATASE 89 U/L (46-116); ALT/SGPT 18 U/L (7.0-40); AST/SGOT 19 U/L (<34); BILIRUBIN,TOTAL 0.3 MG/DL (0.3-1.2); BLOOD UREA NITROGEN 13 MG/DL (9-23); CARBON DIOXIDE LEVEL 29 MMOL/L (20-31); CHLORIDE LEVEL 106 MMOL/L (98-107); CREATININE FOR GFR 0.91 MG/DL (0.55-1.30); GLOMERULAR FILTRATION RATE > 60.0 (>39); GLUCOSE, FASTING 72 MG/DL (74-106); IMMUNOGLOBULIN A 59.8 MG/DL (40-350); IMMUNOGLOBULIN G 1285 MG/DL (650-1600); SODIUM LEVEL 137 MMOL/L (136-145); TOTAL PROTEIN 6.9 G/DL (5.7-8.2)
[2024-01-25 18:59] LABS: IMMUNOGLOBULIN E 32.1 IU/ML (0-378)
[2024-01-27 13:17] LABS: RUBEOLA IgG ANTIBODY > 300.00 AU/mL (>16.49)
[2024-01-27 13:58] LABS: D002-IGE D FARINAE MITE < 0.10 kU/L (<0.10); E001-IGE CAT EPITHELIUM/DANDER < 0.10 kU/L (<0.10); E005-IGE DOG DANDER/HAIR/EPITH < 0.10 kU/L (<0.10); G003-IGE ORCHARD GRASS < 0.10 kU/L (<0.10); G006-IGE TIMOTHY GRASS < 0.10 kU/L (<0.10); M001-IGE PENICILLIUM CHRYSOGEN < 0.10 kU/L (<0.10); M003-IGE D pteronyssinus < 0.10 kU/L (<0.10); M006-IGE ALTERNARIA alternata < 0.10 kU/L (<0.10); M009-IGE FUSARIUM proliferatum < 0.10 kU/L (<0.10); T001-IGE MAPLE/BOX ELDER < 0.10 kU/L (<0.10); T003-IGE COMMON SILVER BIRCH < 0.10 kU/L (<0.10); T007-IGE OAK, WHITE < 0.10 kU/L (<0.10); T008-IGE ELM, AMERICAN WHITE < 0.10 kU/L (<0.10); T014-IGE COTTONWOOD < 0.10 kU/L (<0.10); T015-IGE ASH, WHITE < 0.10 kU/L (<0.10); W001-IGE RAGWEED, SHORT < 0.10 kU/L (<0.10); W003-IGE RAGWEED, GIANT < 0.10 kU/L (<0.10); W006-IGE MUGWORT < 0.10 kU/L (<0.10); W009-IGE PLANTAIN,ENGLISH < 0.10 kU/L (<0.10); W010-IGE LAMB'S QUARTER < 0.10 kU/L (<0.10); W013-IgE COCKLEBUR IGE < 0.10 kU/L (<0.10)
[2024-01-30 15:47] LABS: ANTI TETANUS ANTIBODY 2.18 IU/mL (>=0.10)
[2024-02-01 18:08] LABS: IGE HICKORY, WHITE <0.10 kU/L (Class 0); M007-IGE BOTRYTIS cinerea <0.10 kU/L (Class 0); STREP PNEUMO TYPE 1 2.7 ug/mL (>1.3); STREP PNEUMO TYPE 12F 0.1 ug/mL (>1.3); STREP PNEUMO TYPE 14 0.6 ug/mL (>1.3); STREP PNEUMO TYPE 18C 0.6 ug/mL (>1.3); STREP PNEUMO TYPE 19F 2.4 ug/mL (>1.3); STREP PNEUMO TYPE 23F 2.4 ug/mL (>1.3); STREP PNEUMO TYPE 3 0.2 ug/mL (>1.3); STREP PNEUMO TYPE 4 0.3 ug/mL (>1.3); STREP PNEUMO TYPE 5 1.6 ug/mL (>1.3); STREP PNEUMO TYPE 7F 0.3 ug/mL (>1.3); STREP PNEUMO TYPE 8 2.1 ug/mL (>1.3); STREP PNEUMO TYPE 9N 0.5 ug/mL (>1.3); T005-IGE BEECH (AMERICAN) <0.10 kU/L (Class 0); T016-IGE PINE, WHITE <0.10 kU/L (Class 0); W012-IGE GOLDENROD <0.10 kU/L (Class 0)
[2024-02-02 08:51] LABS: STREP PNEUMO TYPE 6B 0.4 ug/mL (>1.3)
[2024-02-02 08:58] LABS: G002-IGE BERMUDA GRASSOLD <0.10 kU/L
== END ==
LOC: M PLALAB 13:42
PROVIDERS: ATTEND Allergy & Immunology Allergy
DX: J30.81 Allergic rhinitis due to animal (cat) (dog) hair and dander (principal); D84.9 Immunodeficiency, unspecified

== ENCOUNTER → 2024-02-02 | Outpatient (CLI) | payer MEDICARE, OTHER ==
[2024-02-02 15:09] LABS: BASO # 0.1 10^3/uL (0.0-0.2); EOS # 0.2 10^3/uL (0.0-0.5); HEMATOCRIT 41.6 % (36.0-47.0); HEMOGLOBIN 13.5 g/dl (12.0-15.5); LYMPH # 1.1 10^3/uL (1.5-5.0); LYMPH % 22.3 % (24.0-44.0); MEAN CORPUSCULAR HEMOGLOBIN 32.8 pg (27.0-33.0); MEAN CORPUSCULAR HGB CONC 32.5 g/dl (32.0-36.5); MONO # 0.3 10^3/uL (0.0-0.8); MONO % 5.9 % (2.0-8.0); NEUTROPHILS # 3.2 10^3/uL (1.5-8.5); NEUTROPHILS % 65.6 % (36.0-66.0); PLATELET COUNT, AUTOMATED 196 10^3/uL (150-450); RED BLOOD COUNT 4.12 10^6/uL (4.00-5.40); WHITE BLOOD COUNT 4.9 10^3/uL (4.0-10.0)
== END ==
LOC: M PLALAB 13:03
PROVIDERS: ATTEND Internal Medicine Hematology
DX: D84.9 Immunodeficiency, unspecified (principal)

== ENCOUNTER → 2024-02-16 | Outpatient (CLI) | payer MEDICARE, OTHER ==
[~2024-02-16] MED LIST changes: +GABA-1172 PO; -GABA-282 PO
[2024-02-16 15:14] LABS: BASO % 0.4 % (0.0-1.0); EOS # 0.1 10^3/uL (0.0-0.5); EOS % 2.7 % (0.0-3.0); HEMOGLOBIN 13.2 g/dl (12.0-15.5); LYMPH # 0.5 10^3/uL (1.5-5.0); LYMPH % 10.4 % (24.0-44.0); MEAN CORPUSCULAR HEMOGLOBIN 32.5 pg (27.0-33.0); MEAN CORPUSCULAR HGB CONC 32.2 g/dl (32.0-36.5); MONO # 0.4 10^3/uL (0.0-0.8); MONO % 8.2 % (2.0-8.0); NEUTROPHILS # 3.8 10^3/uL (1.5-8.5); NEUTROPHILS % 78.1 % (36.0-66.0); PLATELET COUNT, AUTOMATED 177 10^3/uL (150-450); RED BLOOD COUNT 4.06 10^6/uL (4.00-5.40); WHITE BLOOD COUNT 4.9 10^3/uL (4.0-10.0)
== END ==
LOC: M PLALAB 12:48
PROVIDERS: ATTEND Internal Medicine Hematology
DX: D45 Polycythemia vera (principal)

== ENCOUNTER → 2024-02-22 | Outpatient (CLI) | payer MEDICARE, OTHER | LOC: M RAD 14:12 | PROVIDERS: ATTEND Allergy & Immunology Allergy | DX: J32.9 Chronic sinusitis, unspecified (principal) ==

== ENCOUNTER → 2024-03-08 | Outpatient (CLI) | payer MEDICARE, OTHER ==
[2024-03-08 15:44] LABS: BASO # 0.1 10^3/uL (0.0-0.2); BASO % 1.2 % (0.0-1.0); EOS # 0.1 10^3/uL (0.0-0.5); EOS % 2.7 % (0.0-3.0); HEMATOCRIT 40.8 % (36.0-47.0); HEMOGLOBIN 13.2 g/dl (12.0-15.5); LYMPH # 1.1 10^3/uL (1.5-5.0); LYMPH % 26.4 % (24.0-44.0); MEAN CORPUSCULAR HEMOGLOBIN 31.7 pg (27.0-33.0); MEAN CORPUSCULAR HGB CONC 32.4 g/dl (32.0-36.5); MEAN CORPUSCULAR VOLUME 97.8 fl (80.0-96.0); MONO # 0.4 10^3/uL (0.0-0.8); MONO % 8.5 % (2.0-8.0); NEUTROPHILS # 2.5 10^3/uL (1.5-8.5); NEUTROPHILS % 60.7 % (36.0-66.0); PLATELET COUNT, AUTOMATED 188 10^3/uL (150-450); RED BLOOD COUNT 4.17 10^6/uL (4.00-5.40); WHITE BLOOD COUNT 4.1 10^3/uL (4.0-10.0)
== END ==
LOC: M PLALAB 13:22
PROVIDERS: ATTEND Internal Medicine Hematology
DX: D45 Polycythemia vera (principal)

== ENCOUNTER → 2024-04-05 | Outpatient (CLI) | payer MEDICARE, OTHER | LOC: M PLALAB 13:12 | PROVIDERS: ATTEND Allergy & Immunology Allergy | DX: D84.9 Immunodeficiency, unspecified (principal); D45 Polycythemia vera ==

== ENCOUNTER → 2024-04-05 | Outpatient (CLI) | payer MEDICARE, OTHER ==
[2024-04-05 15:41] LABS: BASO % 0.8 % (0.0-1.0); EOS # 0.1 10^3/uL (0.0-0.5); EOS % 3.1 % (0.0-3.0); HEMATOCRIT 43.3 % (36.0-47.0); HEMOGLOBIN 13.7 g/dl (12.0-15.5); LYMPH # 0.9 10^3/uL (1.5-5.0); LYMPH % 23.9 % (24.0-44.0); MEAN CORPUSCULAR HEMOGLOBIN 31.1 pg (27.0-33.0); MEAN CORPUSCULAR HGB CONC 31.6 g/dl (32.0-36.5); MEAN CORPUSCULAR VOLUME 98.2 fl (80.0-96.0); MONO # 0.3 10^3/uL (0.0-0.8); MONO % 8.1 % (2.0-8.0); NEUTROPHILS # 2.5 10^3/uL (1.5-8.5); NEUTROPHILS % 63.8 % (36.0-66.0); PLATELET COUNT, AUTOMATED 193 10^3/uL (150-450); RED BLOOD COUNT 4.41 10^6/uL (4.00-5.40); WHITE BLOOD COUNT 3.9 10^3/uL (4.0-10.0)
== END ==
LOC: M PLALAB 13:08
PROVIDERS: ATTEND Internal Medicine Hematology
DX: D45 Polycythemia vera (principal)

== ENCOUNTER → 2024-05-03 | Outpatient (CLI) | payer MEDICARE, OTHER ==
[2024-05-03 18:09] LABS: BASO % 0.9 % (0.0-1.0); EOS # 0.1 10^3/uL (0.0-0.5); EOS % 3.1 % (0.0-3.0); HEMATOCRIT 45.2 % (36.0-47.0); HEMOGLOBIN 14.2 g/dl (12.0-15.5); LYMPH # 1.1 10^3/uL (1.5-5.0); LYMPH % 23.7 % (24.0-44.0); MEAN CORPUSCULAR HGB CONC 31.4 g/dl (32.0-36.5); MEAN CORPUSCULAR VOLUME 98.7 fl (80.0-96.0); MONO # 0.2 10^3/uL (0.0-0.8); MONO % 5.3 % (2.0-8.0); NEUTROPHILS # 3.1 10^3/uL (1.5-8.5); NEUTROPHILS % 66.8 % (36.0-66.0); PLATELET COUNT, AUTOMATED 198 10^3/uL (150-450); RED BLOOD COUNT 4.58 10^6/uL (4.00-5.40); WHITE BLOOD COUNT 4.6 10^3/uL (4.0-10.0)
== END ==
LOC: M PLALAB 15:14
PROVIDERS: ATTEND Internal Medicine Hematology
DX: D45 Polycythemia vera (principal)

== ENCOUNTER 2024-05-29 12:30 | Outpatient (CLI) | payer MEDICARE, OTHER ==
[~2024-05-29] VITALS: Ht 157.5 cm; Wt 58.6 kg
[2024-05-29 12:35] VITALS: BP 170/100; O2SAT 100
[2024-05-29 13:30] VITALS: BP 151/69; O2SAT 98
== END 2024-05-29 13:30 ==
LOC: M INFU 12:30
PROVIDERS: ATTEND Internal Medicine Hematology
DX: D45 Polycythemia vera (principal)

== ENCOUNTER → 2024-05-31 | Outpatient (CLI) | payer MEDICARE, OTHER ==
[2024-05-31 15:22] LABS: BASO % 0.6 % (0.0-1.0); EOS # 0.2 10^3/uL (0.0-0.5); HEMATOCRIT 41.3 % (36.0-47.0); HEMOGLOBIN 13.4 g/dl (12.0-15.5); LYMPH % 16.2 % (24.0-44.0); MEAN CORPUSCULAR HEMOGLOBIN 31.7 pg (27.0-33.0); MEAN CORPUSCULAR HGB CONC 32.4 g/dl (32.0-36.5); MEAN CORPUSCULAR VOLUME 97.6 fl (80.0-96.0); MONO # 0.4 10^3/uL (0.0-0.8); MONO % 6.5 % (2.0-8.0); NEUTROPHILS # 4.6 10^3/uL (1.5-8.5); NEUTROPHILS % 73.2 % (36.0-66.0); PLATELET COUNT, AUTOMATED 208 10^3/uL (150-450); RED BLOOD COUNT 4.23 10^6/uL (4.00-5.40); WHITE BLOOD COUNT 6.3 10^3/uL (4.0-10.0)
== END ==
LOC: M PLALAB 13:21
PROVIDERS: ATTEND Internal Medicine Hematology
DX: D45 Polycythemia vera (principal)

== ENCOUNTER → 2024-06-02 | Outpatient (CLI) | payer MEDICARE, OTHER ==
[2024-06-02 18:27] LABS: BLOOD UREA NITROGEN 18 MG/DL (9-23); CALCIUM LEVEL 9.9 MG/DL (8.3-10.6); CARBON DIOXIDE LEVEL 30 MMOL/L (20-31); CHLORIDE LEVEL 105 MMOL/L (98-107); CREATININE FOR GFR 0.95 MG/DL (0.55-1.30); GLOMERULAR FILTRATION RATE > 60.0 (>39); GLUCOSE, FASTING 108 MG/DL (74-106); POTASSIUM SERUM 4.5 MMOL/L (3.5-5.1); SODIUM LEVEL 142 MMOL/L (136-145)
== END ==
LOC: M PLALAB 14:08
PROVIDERS: ATTEND Physician Assistant
DX: I10 Essential (primary) hypertension (principal)

== ENCOUNTER → 2024-07-07 | Outpatient (CLI) | payer MEDICARE, OTHER ==
[2024-07-07 15:36] LABS: BASO # 0.1 10^3/uL (0.0-0.2); BASO % 0.8 % (0.0-1.0); EOS # 0.2 10^3/uL (0.0-0.5); EOS % 2.6 % (0.0-3.0); HEMATOCRIT 40.1 % (36.0-47.0); HEMOGLOBIN 12.9 g/dl (12.0-15.5); LYMPH # 0.8 10^3/uL (1.5-5.0); MEAN CORPUSCULAR HEMOGLOBIN 31.8 pg (27.0-33.0); MEAN CORPUSCULAR HGB CONC 32.2 g/dl (32.0-36.5); MEAN CORPUSCULAR VOLUME 98.8 fl (80.0-96.0); MONO # 0.4 10^3/uL (0.0-0.8); MONO % 7.2 % (2.0-8.0); NEUTROPHILS # 4.7 10^3/uL (1.5-8.5); NEUTROPHILS % 76.1 % (36.0-66.0); PLATELET COUNT, AUTOMATED 195 10^3/uL (150-450); RED BLOOD COUNT 4.06 10^6/uL (4.00-5.40); WHITE BLOOD COUNT 6.1 10^3/uL (4.0-10.0)
[2024-07-07 15:55] LABS: ALBUMIN 3.7 G/DL (3.2-5.2); ALKALINE PHOSPHATASE 90 U/L (35-104); ALT/SGPT 15 U/L (7.0-40); AST/SGOT 18 U/L (<34); BILIRUBIN,TOTAL 0.2 MG/DL (0.3-1.2); BLOOD UREA NITROGEN 16 MG/DL (9-23); CALCIUM LEVEL 9.3 MG/DL (8.3-10.6); CARBON DIOXIDE LEVEL 29 MMOL/L (20-31); CHLORIDE LEVEL 103 MMOL/L (98-107); GLOMERULAR FILTRATION RATE > 60.0 (>39); GLUCOSE, FASTING 124 MG/DL (74-106); POTASSIUM SERUM 4.1 MMOL/L (3.5-5.1); SODIUM LEVEL 140 MMOL/L (136-145); TOTAL PROTEIN 7.1 G/DL (5.7-8.2)
== END ==
LOC: M PLALAB 13:42
PROVIDERS: ATTEND Internal Medicine Hematology
DX: D45 Polycythemia vera (principal)

== ENCOUNTER → 2024-08-04 | Outpatient (CLI) | payer MEDICARE, OTHER ==
[~2024-08-04] MED LIST changes: +ACET500P3 PO; +AMLO1TAB24 PO; +ASPI81CH33 PO; +CEPH500C; +COLA100C5 PO; +HYDR500C3; +LIPI20TA PO; +MELO15TA28; +NOXI1TAB PO; +PEPC40TA12 PO; +VITATAB64 PO; +ZOLO100T PO; +ZOLO50TA PO
== END ==
LOC: M RAD 08:03
PROVIDERS: ATTEND Internal Medicine Medical Oncology
DX: D47.1 Chronic myeloproliferative disease (principal); N28.1 Cyst of kidney, acquired

== ENCOUNTER → 2024-08-21 | Outpatient (CLI) | payer MEDICARE, OTHER ==
[2024-08-21 13:39] LABS: BASO % 0.6 % (0.0-1.0); EOS # 0.1 10^3/uL (0.0-0.5); HEMATOCRIT 44.6 % (36.0-47.0); LYMPH # 0.7 10^3/uL (1.5-5.0); LYMPH % 10.6 % (24.0-44.0); MEAN CORPUSCULAR HGB CONC 31.4 g/dl (32.0-36.5); MEAN CORPUSCULAR VOLUME 95.5 fl (80.0-96.0); MONO # 0.5 10^3/uL (0.0-0.8); MONO % 6.5 % (2.0-8.0); NEUTROPHILS # 5.5 10^3/uL (1.5-8.5); NEUTROPHILS % 79.9 % (36.0-66.0); PLATELET COUNT, AUTOMATED 223 10^3/uL (150-450); RED BLOOD COUNT 4.67 10^6/uL (4.00-5.40); WHITE BLOOD COUNT 6.9 10^3/uL (4.0-10.0)
[2024-08-21 14:03] LABS: CREATININE, URINE 27.4 MG/DL
[2024-08-21 14:06] LABS: ALBUMIN 3.9 G/DL (3.2-5.2); ALKALINE PHOSPHATASE 99 U/L (35-104); ALT/SGPT 20 U/L (7.0-40); AST/SGOT 23 U/L (<34); BILIRUBIN,TOTAL 0.3 MG/DL (0.3-1.2); BLOOD UREA NITROGEN 11 MG/DL (9-23); CALCIUM LEVEL 9.4 MG/DL (8.3-10.6); CARBON DIOXIDE LEVEL 30 MMOL/L (20-31); CHLORIDE LEVEL 102 MMOL/L (98-107); CHOLESTEROL LEVEL 182 MG/DL (<200); CHOLESTEROL RISK RATIO 2.62 (<5); CREATININE FOR GFR 0.85 MG/DL (0.55-1.30); GLOMERULAR FILTRATION RATE > 60.0 (>39); GLUCOSE, FASTING 86 MG/DL (74-106); HDL CHOLESTEROL 69.4 MG/DL (>40); MALB URINE SIEMENS < 3.0 MG/L; NON-HDL-C 112.6 MG/DL; POTASSIUM SERUM 4.4 MMOL/L (3.5-5.1); SODIUM LEVEL 138 MMOL/L (136-145); TOTAL PROTEIN 7.5 G/DL (5.7-8.2); TRIGLYCERIDES LEVEL 103 MG/DL (<150)
[2024-08-21 14:07] LABS: FREE T4 1.28 NG/DL (0.89-1.76); THYROID STIMULATING HORMONE 1.326 uIU/ML (0.55-4.78)
== END ==
LOC: M PLALAB 09:56
PROVIDERS: ATTEND Student in an Organized Health Care Education/Training Program
DX: F41.9 Anxiety disorder, unspecified (principal); I10 Essential (primary) hypertension; E78.00 Pure hypercholesterolemia, unspecified

== ENCOUNTER → 2025-01-22 | Outpatient (REF) | payer MEDICARE, OTHER ==
[~2025-01-22] MED LIST changes: +SLOW1TAB3 PO; -SLOWTAB2 PO
== END ==
LOC: M LAB REF 09:00
PROVIDERS: ATTEND Nurse Practitioner Family
DX: D80.6 Antibody deficiency with near-normal immunoglobulins or with hyperimmunoglobulinemia (principal)